=== PATIENT | female | born 2000 | race Caucasian/White ===

== ENCOUNTER 2021-01-01 23:22 | Inpatient (IN) ==
[2021-01-02] MEDS ORDERED: levETIRAcetam 1,000 MG in 0.9 % SODIUM CHLORIDE 100 ML IV STA (00:11)
[2021-01-02] MEDS ORDERED: SODIUM CHLORIDE 0.9% 1000ML 1,000 ML IV ONE (00:11)
[2021-01-02] MEDS ORDERED: ACETAMINOPHEN 1,000 MG/100 ML VIAL IV STA (00:16)
[2021-01-02] MEDS ORDERED: LORazepam 2 MG/4 ML VIAL ONE (00:36)
[2021-01-02 01:14] LABS: Eosinophils # (auto) 0.01 K/uL (0-0.5); Eosinophils % (auto) 0.2 %; Hematocrit (blood only) 34.4 % (37-47); Hemoglobin 11.8 g/dL (12.0-16.0); Immature Granulocytes # (auto) 0.02 K/uL (0.00-0.02); Immature Granulocytes % (auto) 0.4 %; Lymphocytes # (auto) 1.11 K/uL (1.2-3.4); Lymphocytes % (auto) 19.9 %; Mean Corpuscular Hemoglobin 30.8 pg (25-34); Mean Corpuscular Hgb Conc 34.3 g/dL (32-36); Mean Corpuscular Volume 89.8 fL (80-100); Monocytes # (auto) 0.36 K/uL (0.11-0.59); Monocytes % (auto) 6.5 %; Neutrophils # (auto) 4.07 K/uL (1.4-6.5); Platelet Count 211 K/uL (130-400); RDW Coefficient of Variation 12.5 % (11.5-14.5); RDW Standard Deviation 40.8 fL (36.4-46.3); Red Blood Count 3.83 M/uL (4.2-5.4); White Blood Count 5.57 K/uL (4.8-10.8)
[2021-01-02 01:32] LABS: Albumin Level 3.5 gm/dl (3.4-5.0); BUN Creatinine Ratio 7.4 (10-20); Calcium 8.3 mg/dl (8.5-10.1); Creatinine Clr Calc Pharmacy 94.7 ml/min; Est GFR (African American) 108.9 ml/min; Est GFR (Non-African American) 93.9 ml/min; Magnesium 2.2 mg/dl (1.8-2.4); Potassium 4.1 mmol/L (3.5-5.1)
[2021-01-02 01:34] LABS: Albumin Globulin Ratio 0.9 (0.9-2); Bilirubin,Total 0.2 mg/dl (0.2-1); Globulin 3.7 gm/dl (2.5-4.0); Total Protein 7.2 gm/dl (6.4-8.2)
--- NOTE | 2021-01-02 01:46 | History & Physical Report ---
Date of Service January 02, 2021 Assessment & Plan (1) Witnessed seizure-like activity: Plan: Witnessed seizure-like activity/known seizure disorder- Patient presently postictal Admit with seizure precautions NPO Resume: 200 mg p.o. daily if able to take p.o. in the morning Patient was given levetiracetam 1500 mg IV x1 in ED. Resume levetiracetam 1500 mg p.o. twice daily in the a.m. as long as able to take p.o., otherwise will change to IV NSS + KCl 20 mEq at 100 mils per hour Consult neurology (2) Seizure disorder: Plan: See above History of Present Illness Chief Complaint: The patient is brought to the emergency department after her third seizure of the day today Primary Care Provider: NO PCP The patient is a 20-year-old female with a past medical history significant for seizures, who is brought to the emergency department for assessment after having her third seizure of the day, and did have additional seizure while in the ED this evening. She is on lamotrigine and Keppra in the outpatient setting. She was given Keppra 1500 mg IV by the ED physician this evening. She is presently postictal, and not able to contribute to her HPI or review of systems Allergies Allergy/AdvReac Type Severity Reaction Status Date / Time Unable to Assess Allergy Unverified 01/02/21 01:39 Home Medications Medication Instructions Recorded Confirmed Type lamotrigine 100 mg tablet 100 mg PO UD 01/02/21 01/02/21 History (Lamictal) levetiracetam 100 mg/mL oral 1,500 mg PO BID 01/02/21 01/02/21 History solution (Keppra) Past Med/Surg History Medical History (Updated 01/02/21 @ 05:22 by Kip Doherty MD) Seizure disorder Social History Smoking Status: Never smoker Preferred Language: [place] Feels Safe at Home: Yes Review of Systems Review of Systems: Unable to contribute to review of systems due to postictal state Physical Exam Physical Exam: The patient is post ictal, well developed and well nourished, normocephalic and atraumatic, lying in bed and in no acute distress. HEENT--PERRL, EOMI, mucous membranes and oropharynx dry. Neck--supple. No JVD. No bruits. Thyroid normal, trachea midline, no adenopa thy. Heart--normal S1 and S2. No murmurs, rubs or gallops. Lungs--clear bilaterally, no respiratory distress, no accessory muscle use. Abdomen--normal bowel sounds and soft. Nontender. Nondistended, no hernias or masses, no organomegaly. Extremities--no cyanosis or clubbing. No edema. Dermatologic--normal skin turgor, normal color, no abnormal lymph nodes, no rash. Neurologic--cranial nerves II through XII grossly intact. Rheumatologic--limited exam Psychiatric--postictal. Results & Data Results & Data ([facility]) Vital Signs (Past 12 Hours) Vital Signs Temp Pulse Resp BP Pulse Ox 01/02/21 01:04 106 H 19 111/82 99 01/02/21 00:40 81 19 104/75 96 01/02/21 00:06 124/76 01/01/21 23:35 97.5 F L 96 H 18 111/71 95 Laboratory Results Laboratory Results WBC 5.57 K/uL (4.8-10.8) 01/02/21 01:05 RBC 3.83 M/uL (4.2-5.4) L 01/02/21 01:05 Hgb 11.8 g/dL (12.0-16.0) L 01/02/21 01:05 Hct 34.4 % (37-47) L 01/02/21 01:05 MCV 89.8 fL (80-100) 01/02/21 01:05 MCH 30.8 pg (25-34) 01/02/21 01:05 MCHC 34.3 g/dL (32-36) 01/02/21 01:05 RDW Std Deviation 40.8 fL (36.4-46.3) 01/02/21 01:05 RDW Coeff of [place] 12.5 % (11.5-14.5) 01/02/21 01:05 Plt Count 211 K/uL (130-400) 01/02/21 01:05 MPV 9.0 fL (7.4-10.4) 01/02/21 01:05 Immature Gran % (Auto) 0.4 % 01/02/21 01:05 Neut % (Auto) 73.0 % 01/02/21 01:05 Lymph % (Auto) 19.9 % 01/02/21 01:05 Carlton % (Auto) 6.5 % 01/02/21 01:05 Eos % (Auto) 0.2 % 01/02/21 01:05 Baso % (Auto) 0.0 % 01/02/21 01:05 Neut # (Auto) 4.07 K/uL (1.4-6.5) 01/02/21 01:05 Lymph # (Auto) 1.11 K/uL (1.2-3.4) L 01/02/21 01:05 Carlton # (Auto) 0.36 K/uL (0.11-0.59) 01/02/21 01:05 Eos # (Auto) 0.01 K/uL (0-0.5) 01/02/21 01:05 Baso # (Auto) 0.00 K/uL (0-0.2) 01/02/21 01:05 Immature Gran # (Auto) 0.02 K/uL (0.00-0.02) 01/02/21 01:05 Sodium 135 mmol/L (136-145) L 01/02/21 01:05 Potassium 4.1 mmol/L (3.5-5.1) 01/02/21 01:05 Chloride 109 mmol/L (98-107) H 01/02/21 01:05 Carbon Dioxide 21 mmol/L (21-32) 01/02/21 01:05 Anion Gap 5.0 (3-11) 01/02/21 01:05 BUN 7 mg/dl (7-18) 01/02/21 01:05 Creatinine 0.88 mg/dl (0.6-1.2) 01/02/21 01:05 Est Cr Clr Drug Dosing 94.7 ml/min 01/02/21 01:05 Est GFR ( Amer) 108.9 ml/min 01/02/21 01:05 Est GFR (Non-Af Amer) 93.9 ml/min 01/02/21 01:05 BUN/Creatinine Ratio 7.4 (10-20) L 01/02/21 01:05 Glucose 97 mg/dl (70-99) 01/02/21 01:05 Calcium 8.3 mg/dl (8.5-10.1) L 01/02/21 01:05 Magnesium 2.2 mg/dl (1.8-2.4) 01/02/21 01:05 Total Bilirubin 0.2 mg/dl (0.2-1) 01/02/21 01:05 AST 16 U/L (15-37) 01/02/21 01:05 ALT 17 U/L (12-78) 01/02/21 01:05 Alkaline Phosphatase 44 U/L (45-117) L 01/02/21 01:05 Total Protein 7.2 gm/dl (6.4-8.2) 01/02/21 01:05 Albumin 3.5 gm/dl (3.4-5.0) 01/02/21 01:05 Globulin 3.7 gm/dl (2.5-4.0) 01/02/21 01:05 Albumin/Globulin Ratio 0.9 (0.9-2) 01/02/21 01:05 COVID-19 Eval Order Covid19 at [facility] 01/02/21 01:07 SARS-CoV-2 (PCR) NEGATIVE (Negative) 01/02/21 01:07 Diagnostic Findings [facility] Patient: ARNOLD LOU (Female) : 89 Status: ER Date: 01/02/21 01:01 Room #: History: Pt. is post 2 seizures. Slices: 66 Priors: Tech: Pauline Fields @ [phone] Exams: CT HEAD Contrast: Accession Numbers: [id number] Referring Physician: CAROLINA RENNER Preliminary Findings Only See Final Report For Complete Findings CT HEAD: No ICH, mass effect or edema. No evidence of acute cortical stroke. Visualized sinuses and mastoid air cells are clear. Radiologist: Chandler Haywood MD Study ready at 01:02 and initial results transmitted at 01:15 *This report constitutes a preliminary interpretation only. Non-acute findings felt to be unrelated to the clinical presentation may not be discussed in this report. The study will be interpreted and a final report will be generated by the local Radiologist the following shift. To reach the hospital radiology department call [phone]. If a discrepancy is found between the preliminary and final interpretations of this study, please notify us via our Client Portal at [email or web address] QA [email or web address].You can also fax this report with a description of the discrepancy, or include the final report, to our daytime fax number [phone].If faxing, please indicate the severity of discrepancy using one of the following categories: [ ] 1 - Agree/Informational [ ] 2 - Unlikely to Affect Management [ ] 3 - Possible Eventual Change of Management [ ] 4 - Probable Immediate Change of Management For all other patient related information, please fax us at [phone]. [id number] Code Status & VTE Plan Code Status Full code VTE Prophylaxis Plan VTE Prophylaxis will be ordered: Yes PG Care Time/CCT Total # of Minutes Spent Total Time Spent with Patient: Total time spent is greater than 50% in coordination of care (as documented) at patient's floor/unit and/or counseling patient: Coding Level of Care Code 39405 Initial Inpt Care Lvl 2 Diagnoses Witnessed seizure-like activity R56.9 Seizure disorder G40.909
[2021-01-02] MEDS ORDERED: ONDANSETRON INJ 2 MG/ML 2 ML VIAL IV PRN (05:32)
[2021-01-02] MEDS ORDERED: LORazepam 1 MG/2 ML VIAL IV PRN (05:32)
[2021-01-02] MEDS: NSS + 20MEQ KCL 20 MEQ/1,000 ML BAG IV SCH ×2 (05:57→16:07)
--- NOTE | 2021-01-02 07:13 | CT Scan Report ---
HEAD CT NONCONTRAST CT DOSE: 729.78 mGycm HISTORY: Seizure x2 TECHNIQUE: Multiaxial CT images of the head were performed without the use of intravenous contrast. A utomated exposure control was utilized for this study. A dose lowering technique was utilized adheri ng to the principles of ALARA. Comparison: None. Findings: Mild mucosal thickening within the paranasal sinuses. The mastoid air cells are clear. The calvarium and skull base are intact. The ventricles and sulci are within normal limits. There is no m ass, hematoma, midline shift, or acute infarct. Impression: No acute intracranial abnormality. ACT 112: Negative or not required by law. Electronically signed by: Tom Irving M.D. 01/02/2021 7:12 AM
[2021-01-02] MEDS ORDERED: levETIRAcetam ORAL SOLN 100MG/ML PO SCH (09:00)
[2021-01-02] MEDS ORDERED: lamoTRIgine 100 MG TAB PO SCH ×5 (09:00→21:00)
--- NOTE | 2021-01-02 09:49 | Medical Student Progress Note ---
Date of Service January 02, 2021 Assessment & Plan (1) Seizure disorder: Plan: Seizure Disorder: - follow up with neurology for consideration of increasing dosage of medications Seizure-like activity: - treat underlying cough/congestion, as may URI/viral illness may be lowering her seizure threshold -continue Lamictal and Keppra -continue IV normal saline with 20 Meq KCl @ 100 mLs/hr - Zofran and Ativan PRN for nausea and additional seizure-like activity (2) Witnessed seizure-like activity: Admission and Anticipated Discharge Date Admission Date: January 02, 2021 Subjective 20 yo woman with PMHx of seizure disorder on Lamotrigine 100 mg QD and Levetiracetam 1500 mg BID presented to the ED after 3 seizures in the span of several hours. Her first seizure was at 8:30, witnessed by her roommates. She is unsure if they called the hospital before driving her over to the ED. As they were leaving their building, she had another seizure. She is unsure if she had another seizure before arriving to the ED (in the car). Of note, she has had a cough and "sniffles" for a week now. She doesn't believe her roommates are sick, but she does attend classes and social activities. She feels that she is getting better. She doesn't recall any head trauma or falls. Though she did point out a scratch on her face on neck, and attributed this to her episodes yesterday. She doesn't feel that she is sleep-deprived. She is not experiencing more stress than baseline. She isn't using alcohol or illicit drugs. Her appetite has been low since yesterday evening. She had a slight headache and feels dehydrated this morning. She is very tired and has blurry vision this AM. Historically, she was diagnosed with her seizure disorder a year and a half ago. She shared that alcohol used to be a "trigger" and she stopped drinking around the time of her diagnosis. Her "triggers" now are still alcohol when she does drink, and sleep deprivation. She shared with me that she never remembers her seizures and that they are of the Grand Mal variety. She says that she used to have warning signs, but she doesn't get them anymore. Her last seizure prior to the one yesterday (01/01) was 2-3 months ago. Medical history only significant for seizure disorder diagnosed 1.5 years ago. No past surgical history. She relayed no significant family history. 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[employer], studying hospitality, wants to travel lives with roommates Review of Systems Review of Systems: All systems reviewed & are unremarkable except as noted in HPI & below Constitutional: + fatigue; no increased appetite Eyes: as per Subjective / HPI blurry vision bilaterally Ear, Nose, Mouth, Throat: as per Subjective / HPI Respiratory: as per Subjective / HPI and + cough (1 week history) Cardiovascular: as per Subjective / HPI Gastrointestinal: as per Subjective / HPI decreased appetite this AM Genitourinary: as per Subjective / HPI no issues using the bathroom (urination and bowel movements) Musculoskeletal: as per Subjective / HPI Integumentary: as per Subjective / HPI Neurologic: as per Subjective / HPI, + seizure-like activity and + headache(s) Psychiatric: as per Subjective / HPI Physical Exam Constitutional: WD/WN, vitals as above well developed, well nourished, + ill appearing, well groomed and cooperative Eyes: PERRL, conjunctivae normal, anicteric sclerae + nystagmus (mild nystagmus both vertically and horizontally ) ENMT: external ear and nose normal, oropharynx normal Neck: trachea midline, no thyromegaly Respiratory: normal respiratory effort, lungs clear to auscultation Cardiovascular: RRR, no murmur, no edema Gastrointestinal (Abdomen): normal bowel sounds, soft, nontender, no hepatosplenomegaly Musculoskeletal: Head/Neck/Chest: normocephalic, head atraumatic and neck supple Extremities: + abnormal strength (strength 4/5 throughout; possibly related to fatigue) Skin: no rashes, warm and dry Trauma: + abrasion (small on face and neck) and + contusion (small bruise right side upper cheek ) Neurologic: patellar DTR's 2+ bilat, sensation intact and PERRL, EOMI, accommodation nl, no face palsy, no dysarthria normal touch/pain/proprioception, CN's II-XI intact bilaterally, plantar reflexes intact bilaterally, moves all extremities and awake Motor/Sensory: + abnormal movement (generally slow movements, may be due to fatigue ) Psychiatric: A+Ox3, euthymic affect Affect: + flat affect (pt fatigued ) Lymphatic: no cervical or axillary lymphadenopathy Results & Data ([facility]) Vital Signs (Past 12 Hours) Vital Signs Temp Pulse Pulse Resp BP BP BP 01/02/21 09:18 71 01/02/21 07:35 36.8 C 75 18 108/73 01/02/21 05:10 36.5 C 76 16 103/63 01/02/21 04:00 68 124/88 01/02/21 03:30 66 106/71 01/02/21 02:30 128/80 01/02/21 02:00 109/78 01/02/21 01:30 108/66 01/02/21 01:04 106 H 19 111/82 01/02/21 00:40 81 19 104/75 01/02/21 00:06 124/76 01/01/21 23:35 36.4 C L 96 H 18 111/71 Pulse Ox 01/02/21 09:18 01/02/21 07:35 98 01/02/21 05:10 98 01/02/21 04:00 96 01/02/21 03:30 98 01/02/21 02:30 01/02/21 02:00 01/02/21 01:30 01/02/21 01:04 99 01/02/21 00:40 96 01/02/21 00:06 01/01/21 23:35 95
[2021-01-02 10:53] LABS: Appearance Urine Clear (Clear); Bilirubin Urine Negative (Negative); Blood Urine Negative (Negative); Color Urine Yellow; Glucose Urine UA Negative (Negative); Ketones Urine Negative (Negative); Leukocyte Esterase Urine Negative (Negative); Nitrite Urine Negative (Negative); Protein Urine Negative (Negative); Urobilinogen Urine Negative (Negative)
--- NOTE | 2021-01-02 11:16 | Neurology Consultation ---
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 She has had several recent breakthrough seizures that were not clearly triggered by external factors or medication noncompliance. In speaking with the patient, it sounds like her seizures are incompletely controlled in spite of taking both Lamictal and Keppra. 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 RYANNE is typically very responsive to Keppra. Other seizure types such as partial complex seizures with secondary generalization or other primary generalized epilepsy syndrome are not completely excluded. I have recommended an EEG and brain MRI with seizure protocol for further assessment. Would also recommend increasing her dosage of Lamictal to 200 mg twice daily. Patient should not be driving. Assuming patient remains stable she may be able to be discharged later today. 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 She had multiple seizures yesterday, the first event occurred while alone in her apartment. She had contacted some of her friends who brought her to the emergency department for further evaluation. The patient does have an established diagnosis of seizure disorder/epilepsy and follows with a neurologist back home affiliated with [facility]. She informs me that her first seizure occurred at age 18 and may have been triggered by alcohol consumption at that time. However, she has had several subsequent seizures that have apparently been difficult to control with anticonvulsants, ultimately requiring both lamotrigine and Keppra. In spite of being on these 2 anticonvulsants, however, the patient reports having intermittent seizures, perhaps one episode every few months. Most of her episodes tend to be brief and are characterized by sudden jerking of the limbs. She will occasionally have a generalized tonic-clonic seizure and has had associated tongue bite in the past. Denies experiencing any loss of consciousness. Patient informs me that the limb jerking tends to occur early in the morning and she has had associated dropping or flinging of objects in her hands during the spells. She denies experiencing any episodes triggered by flashing lights. Patient denies experiencing any aura or other premonitory symptoms prior to her spells. She does have some minor bruising around the right eye and some scraping along the anterior aspect of her neck related to one of her recent seizures. She is mildly lethargic this morning and does not recall details pertaining to her recent seizure episodes. The patient reports compliance with her anticonvulsants. She denies any recent illnesses. She denies any recent alcohol consumption. She is aware of her current anticonvulsant drug regimen and informs me that she takes Keppra 1500 mg twice daily and lamotrigine 150 mg in the morning, 200 mg in the evening. She was given a 1500 mg loading dose of Keppra while in the emergency department. She did have a CT of the head completed as well which was unremarkable. Again, patient indicates that she began experiencing seizures at age 18. She informs me that she has been evaluated by 2 different neurologist back home, her current neurologist is affiliated with [facility]. She informs me that she has had multiple EEG evaluations including 24-hour ambulatory EEG monitoring but does not think any specific abnormalities have been identified. She also recalls having normal brain MRI previously. She does not recall any other specifics regarding her diagnosis other than seizure disorder. Allergies Allergy/AdvReac Type Severity Reaction Status Date / Time Unable to Assess Allergy Unverified 01/02/21 01:39 Home Medications Medication Instructions Recorded Confirmed Type lamotrigine 100 mg tablet 100 mg PO UD 01/02/21 01/02/21 History (Lamictal) levetiracetam 100 mg/mL oral 1,500 mg PO BID 01/02/21 01/02/21 History solution (Keppra) Patient History Medical History Seizure disorder Social History Smoking Status: Never smoker Hx Alcohol Use: No Hx Substance Use: No Preferred Language: Armenian Communication Ability: Effective Woods Laborer Required: No Beliefs That Will Affect Care: None Current Living Situation: Other Current Living Situation Comment: [place] Feels Safe at Home: Yes Assistive Devices: None Review of Systems Constitutional: no fever and no chills Eyes: no blind spots and no diplopia Ear, Nose, Mouth, Throat: no ear pain and no hearing loss Respiratory: no cough and no dyspnea Cardiovascular: no chest pain and no palpitations Gastrointestinal: no constipation and no diarrhea/loose stools Genitourinary: no urinary urgency and no urinary incontinence Musculoskeletal: no muscle weakness and no muscle atrophy Integumentary: no rash and no lesions Neurologic: as per Subjective / HPI Psychiatric: no behavioral changes, no depression, no abnormal sleep pattern and no anxiety Hematologic / Lymphatic: no easy bruising and no lymphadenopathy Exam (Neuro) Constitutional: well developed and well nourished; no acute distress Eyes: normal visual ferreira by confrontation, PERRL, normal accommodation and EOM intact bilaterally; no fundoscopic abnormality, no nystagmus and no papilledema Cardiovascular: Vessels: normal carotid upstroke; no carotid bruit Neurologic: Oriented to:: Person, Place and Time Memory: Short Term Intact and Remote Intact Attention: Span Intact and Concentration Intact Language: Naming Objects and Repeating Phrases Speech Fluency: negative Dysarthria Speech Aphasia: negative Aphasia Fund of Knowledge: Current Events, Past History and Vocabulary Cranial Nerves: Normal II (Visual ferreira full to confrontation, visual acuity normal), III, IV, (Pupils equal round reactive to light and accommodation, eye movements normal), V (Facial sensation intact), VII (There is no facial droop or weakness), VIII (Hearing intact), IX, X (Palate elevates to midline), XI (Shoulder shrug intact) and XII (Tongue protrudes to midline) Motor Strength: Normal Lower Extremities and Normal Upper Extremities; negative Pronator Drift Motor Tone: Normal Lower Extremities and Normal Upper Extremities Muscle Bulk/Involuntary Movements: No Involuntary Movements; negative Muscle Atrophy Sensation: Light Touch Intact, Pain/Temperature Intact, Vibration Intact and Proprioception Intact Coordination: Normal; negative Limited Balance, Dysdiadochokinesia, Finger-Nose Abnormal or Heel-Briggs Abnormal Deep Tendon Reflexes: Rt Triceps: 2+, Lt Triceps: 2+, Rt Biceps: 2+, Lt Biceps: 2+, Rt Brachioradialis: 2+, Lt Brachioradialis: 2+, Rt Patellar: 2+, Lt Patellar: 2+, Rt Ankle: 2+ and Lt Ankle: 2+ Special Tests: negative Babinski Present Gait: Normal Station and Gait Results & Data ([facility]) Vital Signs (Past 12 Hours) Vital Signs Temp Pulse Pulse Resp BP BP BP 01/02/21 10:54 36.8 C 81 17 106/69 01/02/21 09:18 71 01/02/21 07:35 36.8 C 75 18 108/73 01/02/21 05:10 36.5 C 76 16 103/63 01/02/21 04:00 68 124/88 01/02/21 03:30 66 106/71 01/02/21 02:30 128/80 01/02/21 02:00 109/78 01/02/21 01:30 108/66 01/02/21 01:04 106 H 19 111/82 01/02/21 00:40 81 19 104/75 01/02/21 00:06 124/76 01/01/21 23:35 36.4 C L 96 H 18 111/71 Pulse Ox 01/02/21 10:54 98 01/02/21 09:18 01/02/21 07:35 98 01/02/21 05:10 98 01/02/21 04:00 96 01/02/21 03:30 98 01/02/21 02:30 01/02/21 02:00 01/02/21 01:30 01/02/21 01:04 99 01/02/21 00:40 96 01/02/21 00:06 01/01/21 23:35 95 Coding Level of Care Code 87400 Inpt Consult Level 5 Diagnoses Seizure disorder G40.909
--- NOTE | 2021-01-02 14:55 | Electroencephalogram ---
EEG Procedure Note Date of Service January 02, 2021 Start / End Times Start Time: 11:46 AM End Time: 12:06 PM Referring Physician Peewee Holden MD History History of seizure disorder, recent breakthrough seizures. Home Medication List Medication Instructions Recorded Confirmed Type lamotrigine 100 mg tablet 100 mg PO UD 01/02/21 01/02/21 History (Lamictal) levetiracetam 100 mg/mL oral 1,500 mg PO BID 01/02/21 01/02/21 History solution (Keppra) Inpatient Medication List Potassium Chloride/Sodium Chloride (Normal Saline W/20 Meq Kcl) 20 meq in 1,000 mls @ 100 mls/hr IV .Q10H ALESHIA Stop: 02/01/21 05:59 Last Admin: 01/02/21 05:57 Dose: 100 mls/hr Documented by: [id number] Levetiracetam (Levetiracetam Oral Soln 100mg/Ml) 1,500 mg PO BID ALESHIA Stop: 02/01/21 08:59 Last Admin: 01/02/21 09:24 Dose: 1,500 mg Documented by: [id number] Discontinued Medications Sodium Chloride (Nss 1000ml) 1,000 mls @ 999 mls/hr IV .Q1H1M ONE Stop: 01/02/21 01:11 Last Infusion: 01/02/21 01:40 Dose: 0 mls/hr Documented by: [id number] Admin: 01/02/21 00:39 Dose: 999 mls/hr Documented by: [id number] Levetiracetam 1,000 mg/ Sodium (Chloride) 110 mls @ 440 mls/hr IV NOW STA Stop: 01/02/21 00:25 Last Infusion: 01/02/21 00:54 Dose: 0 mls/hr Documented by: [id number] Admin: 01/02/21 00:39 Dose: 440 mls/hr Documented by: [id number] Acetaminophen (Ofirmev) 1,000 mg in 100 mls @ 400 mls/hr IV NOW STA Stop: 01/02/21 00:30 Last Admin: 01/02/21 05:33 Dose: Not Given Documented by: [id number] Lamotrigine (Lamotrigine 100 Mg Tab) 150 mg PO QAM ALESHIA Stop: 02/01/21 08:59 Last Admin: 01/02/21 09:24 Dose: 150 mg Documented by: [id number] Lorazepam (Lorazepam 2 Mg/4 Ml Vial) Confirm Administered Dose 2 mg .ROUTE .[email or web address] ONE Stop: 01/02/21 00:37 Last Admin: 01/02/21 00:38 Dose: 2 mg Documented by: [id number] Description This is a 21 electrode EEG with a single channel dedicated to limited EKG. The electrodes were placed in accordance with the International 10-20 system. There is a posterior dominant rhythm of 12 Hz which is symmetrically distributed and attenuates with eye opening. There is a normal anterior to posterior organization. Photic stimulation is unremarkable. Hyperventilation is not performed. There is a symmetric frontal beta rhythm. There is some attenuation of the posterior dominant rhythm in the latter part of the study with the emergence of admixed generalized polymorphic theta activity. There are a few vertex waves. There is no focal or lateralized slowing. There are no spike wave abnormalities. There are no epileptiform abnormalities. Interpretation Normal-appearing awake/sleepy EEG. A normal EEG does not completely exclude a diagnosis of epilepsy. Further clinical correlation may be needed. [facility] [place] EEG Procedure Codes Indication for Procedure (1) Seizure disorder: Neurology Neurology: [id number] EEG include record awake & sleepy
--- NOTE | 2021-01-02 15:27 | Discharge Summary ---
Date of Service January 02, 2021 Admission HPI Per Admitting Provider The patient is a 20-year-old female with a past medical history significant for seizures, who is brought to the emergency department for assessment after having her third seizure of the day, and did have additional seizure while in the ED this evening. She is on lamotrigine and Keppra in the outpatient setting. She was given Keppra 1500 mg IV by the ED physician this evening. She is presently postictal, and not able to contribute to her HPI or review of systems Admission Exam Per Admitting Provider The patient is post ictal, well developed and well nourished, normocephalic and atraumatic, lying in bed and in no acute distress. HEENT--PERRL, EOMI, mucous membranes and oropharynx dry. Neck--supple. No JVD. No bruits. Thyroid normal, trachea midline, no adenopathy. Heart--normal S1 and S2. No murmurs, rubs or gallops. Lungs--clear bilaterally, no respiratory distress, no accessory muscle use. Abdomen--normal bowel sounds and soft. Nontender. Nondistended, no hernias or masses, no organomegaly. Extremities--no cyanosis or clubbing. No edema. Dermatologic--normal skin turgor, normal color, no abnormal lymph nodes, no rash . Neurologic--cranial nerves II through XII grossly intact. Rheumatologic--limited exam Psychiatric--postictal. Principal Diagnosis Breakthrough seizure Discharge Exam General: Well appearing, age appropriate, slight lethargy Heart: RRR, +S1 S2, no murmurs/gallops/rubs Lungs: cta b/l, no wheezes/rales/rhonchi Abd: soft, NT/ND, +BS Extremities: no swelling, no rashes Neuro: C2-12 intact b/l Discharge Data Allergies Allergy/AdvReac Type Severity Reaction Status Date / Time Unable to Assess Allergy Unverified 01/02/21 01:39 Consultations 01/02/21 01:42 ED Decision to Admit Stat 01/02/21 05:32 Consult Neurology Routine Ordered Studies 01/02/21 00:17 CT head/brain wo con Urgent 01/02/21 11:16 MR brain seizure wo/w con Routine Hospital Course (1) Seizure disorder: 20yo Female here for witnessed seizure activity, PMH seizure disorder on Keppra Lamictal. ()Seizure disorder Witnessed 2 seizure-like activity, patient brought to ED in post-ictal state had additional episode in ED. Given levetiracetam 1500 mg IV x1 in ED and IVF. Placed on home medication regime. Neurology consulted, belive seizures not controlled on current medication regime, recommend brain MRI EEG increased lamictal to 200mg BID, states patient should not be driving. EEG and brain MRI negative. Please have patient follow her PCP and Neurologist in outpatient setting. Total Time Total Time Spent Total Time Spent (In Minutes): <30 Discharge Plan Discharge Items Patient Disposition: Home - Self-Care Reason For Visit: SEIZURE ACTIVITY, SEIZURE DISORDER Discharge Diagnosis: Breakthrough Seizure Activity: Resume your previous activity Non-emergency contact: Primary Care Provider Call non-emergency contact if: you have any medication questions, your symptoms worsen and you have a fever Follow-up/Referrals: PCP,NO [Primary Care Provider] - Diet: Regular Addtl Attending Provider Instructions: You were admitted to the hospital for seizure. You were treated with Keppra and Ativan. Based on your brain imaging, there is no new structural abnormality causing your breakthrough seizure. We have increased your Lamictal to 200 mg twice a day and kept your Keppra at its current dose. Please make a follow up appointment with your Neurologist and Family Doctor after your hospitalization. As your seizures are not controlled at this time, please do not drive until you are approved by your neurologist in outpatient. A discharge summary will be sent to your primary care physician to ensure continuity of care. Please bring this discharge summary with you to your next office appointment so that your provider can review it at that time. Follow-up appointments: Make a follow-up appointment with your PCP within the next week. It is very important that you follow up with them shortly after discharge from the hospital. Please make a follow-up appointment with your Neurologist within the next week Keep all your follow-up appointments as already scheduled. If you cannot make an appointment, notify your provider. Medications: Your medication list has been reviewed and reconciled upon discharge to ensure accuracy and continuity of care. An updated list of all your medications is included with your hospital discharge paperwork. Please review this list closely, and make note of any changes. * We have increased your Lamictal to 200mg twice a day. Take your medications as instructed; do not skip a dose of your medicines. Make sure all of your doctors know every medicine you are taking (including pyps-wpv-oavwegm medicines, vitamins, and supplements). Call your primary care provider before taking any new medicines (including xuhd-ekk-lrttlkp medicines, vitamins, and supplements), because some of these may interact with your current medications, or may make your symptoms worse. Tell your primary care provider if you cannot afford your medications. CONTACT YOUR PRIMARY CARE PROVIDER if you experience any of the following: loss of consciousness, seizures Difficulty following your treatment plan, or difficulty taking medications CALL 911 OR GO TO THE EMERGENCY DEPARTMENT if you experience any of the following: Sudden, severe abdominal pain or nausea/vomiting Severe chest pain, or chest pain that radiates (moves) to your jaw or arm Sudden, severe shortness of breath or difficulty breathing Thank you for allowing us to participate in your care. Pending Studies at Discharge: No Stand-Alone Forms: My [facility] [address], Smoking Cessation Medications and DC Order Prescriptions: New lamotrigine [Lamictal] 200 mg tablet 200 mg PO BID 30 Days Qty: 60 RF: 0 levetiracetam [Keppra] 1,000 mg tablet 1,500 mg PO BID 30 Days Qty: 90 RF: 0 Discontinued lamotrigine [Lamictal] 100 mg Tablet 100 mg PO UD RF: 0 levetiracetam [Keppra] 100 mg/mL Solution 1,500 mg PO BID RF: 0 Discharge Orders: Discharge Order (Routine); Ordered 01/02/21 Ordered By: Emmy Pete/Other Patient Handouts: Epilepsy: How Seizures Affect the Body, Epilepsy: Safety During a Seizure, First Aid: Seizures Admission Data Admit Date/Time: 01/02/21 01:46 Attending Provider: Zaki Galaviz Admit Provider: Kip Doherty Primary Care Provider: PCP,NO Other Providers: Kip Doherty ; Peewee Holden Other Interventions: Discharge Summary Assessment (RN) Last Done: 01/02/21 18:09 Supervising Physician Co-Signing Physician Notes I personally examined the patient and verified all christian points of history and exam, discussed case, and agree with decision making with Dr Santo. Feeling better, feeling up to going home. No further seizure activity. Vitals noted, in general she is awake and alert pleasant no distress. HEENT normocephalic atraumatic mucous membranes moist. Breathing unlabored no accessory muscle use good effort. Skin shows no rashes no pallor or icterus. Neuro without focal deficits. Breakthrough seizuresMRI negative, okay for home from neuro perspectivewe will follow neuro recommendations on medications. Outpatient follow-up. Otherwise as above. Resident Activity Tracking Resident Involvement: Resident Care Provided Care Provided: Adult Hospital Medicine
[2021-01-02] MEDS ORDERED: GADOBUTROL 65ML VIAL IV ONE (16:54)
--- NOTE | 2021-01-02 16:57 | Magnetic Resonance Report ---
MR brain seizure wo/w con INDICATION: Seizure TECHNIQUE: Multiplanar and multisequence MR images of the brain were obtained prior to and following administration of gadolinium contrast. Comparison: Comparison is made to CT head 01/02/2021 FINDINGS: No abnormal restricted diffusion is identified. The white matter is unremarkable. There is no evidenc e of acute intraparenchymal hemorrhage. No extra axial fluid collections are seen. There are no nick s, mass effect, or midline shift. No abnormal enhancement is seen. The ventricular system is normal i n appearance. The corpus callosum, pituitary gland, and cerebellar tonsils appear grossly unremarkabl e.High-resolution images of the temporal lobes do not demonstrate any signal abnormality. Flow voids of the major intracranial arterial vessels are identified. Soft tissue thickening is noted in the bilateral maxillary maxillary, ethmoid, and frontal sinuses. Mastoid air cells are clear. IMPRESSION: 1. No acute abnormality. In particular, no edema in the temporal lobes bilaterally in this postictal patient. 2. Sinus disease. ACT 112: Negative or not required by law. Electronically signed by: Luiz Osborn M.D. 01/02/2021 4:26 PM
--- NOTE | 2021-01-02 20:16 | Billing Data ---
Date of Service January 02, 2021 Coding Level of Care Code D/C DAY MANAGEMENT <30 MINS
--- NOTE | 2021-01-03 06:08 | Electrocardiogram Report ---
Test Reason : Blood Pressure : / mmHG Vent. Rate : 068 BPM Atrial Rate : 068 BPM P-R Int : 188 ms QRS Dur : 076 ms QT Int : 416 ms P-R-T Axes : 057 084 058 degrees QTc Int : 442 ms Normal sinus rhythm Normal ECG No previous ECGs available Confirmed by Sal Verde ([id number]) on 01/03/2021 6:07:42 AM Referred By: REFERRED SELF Confirmed By:Sal Verde
[2021-01-03] MEDS ORDERED: lamoTRIgine 100 MG TAB PO SCH (09:00)
--- NOTE | 2021-01-04 07:59 | Emergency Department Note ---
Impression & Plan Epileptic seizure ED Provider Note CHIEF COMPLAINT: Seizure x2 HISTORY OF PRESENT ILLNESS: This 20-year-old female patient presents to the emergency department by private vehicle with complaints of seizure x2 today. The patient has a known seizure disorder and currently takes Keppra as well as Lamictal. The patient experienced a seizure this evening is apparently generalized in nature, witnessed by her roommate. She then took her evening dose of Keppra. She had no vomiting or injury at that time. Within an hour the patient experienced a second seizure walking down the [place], on her way to the hospital, again witnessed by roommates. They stated that her fall was broken however she did convulse well on her abdomen. She scraped her right facial cheek with her fingernail. They do not think she sustained a significant head injury but may have hit her head off of the ground while seizing. Patient is currently complaining of a headache. She does not believe that she is missed any doses of her medication. She states she just started having seizures within the last 2 years for unknown reasons. She denies any known triggers. She states she stopped drinking alcohol when she started having seizures. She denies any significant sleeplessness or excessive caffeine. She denies any substance abuse details of . REVIEW OF SYSTEMS: A review of systems was performed with positives and pertinent negatives listed in the history of present illness. 10 systems were reviewed and are otherwise negative. ALLERGIES: See Below MEDICATIONS: See Below PMH: See below SOCIAL HISTORY: See below PHYSICAL EXAM: Vital signs reviewed. General: Generally well-appearing 20-year-old female, in no significant distress. HEENT: No conjunctival injection, pupils are dilated at approximately 4 to 5 mm equal bilaterally. PERRLA, neck supple. Right facial cheek with 2 cm super ficial abrasion and minimal erythema. Cardiovascular: Regular rate and rhythm, no extra sounds. Pulmonary: Clear to auscultation bilaterally, normal work of breathing. Abdomen: Soft, nontender, nondistended, positive bowel sounds. Musculoskeletal: Atraumatic, no peripheral edema. Neurologic: Patient awake alert and oriented x3, speech is clear. Follows commands but seemingly slow to respond. Skin: Warm, dry, no rash EMERGENCY DEPARTMENT COURSE: This patient was evaluated and appeared to be in no significant distress. IV access was obtained and laboratory work was drawn. Patient was placed on a nuclear monitoring technician with seizure precautions maintained. IV fluids were initiated however as the IV saline lock was being established the patient did experience a third seizure for the day. Nursing staff came to get me and the seizure was mostly resolved by the time I got to the room. Patient r emained stable and was given 2 mg of IV Ativan. Patient was placed on nasal cannula oxygen with airway precautions maintained. She was given 1 g of IV Keppra. MONITORING: An order for cardiac monitoring was placed and the patient is noted to be in a normal sinus rhythm at 68 beats per minute. RADIOLOGY: See below, but no evidence of acute intracranial abnormality. EKG: Normal sinus rhythm at [address] segments, normal axis, no PVC, no PAC. DIAGNOSIS: Seizure episode with seizure disorder Disposition: Consultation with hospitalist, admission Past Med/Surg History Medical History Seizure disorder Social History Smoking Status: Never smoker Hx Alcohol Use: No Hx Substance Use: No Preferred Language: Mongolian Communication Ability: Effective Registered Occupational Therapist Required: No Beliefs That Will Affect Care: None Current Living Situation: Other Current Living Situation Comment: Roomates Feels Safe at Home: Yes Assistive Devices: None Allergies Allergies Allergy/AdvReac Type Severity Reaction Status Date / Time Unable to Assess Allergy Unverified 01/02/21 01:39 Home Meds Previous Rx's Medication Instructions Recorded lamotrigine 200 mg tablet 200 mg PO BID 30 Days #60 tab 01/02/21 (Lamictal) levetiracetam 1,000 mg tablet 1,500 mg PO BID 30 Days #90 tab 01/02/21 (Keppra) Results & Data (ED) Home Medications Current Medication List: was personally reviewed by me Laboratory Data Attestation: I reviewed the patient's lab results. Result diagrams: 01/02/21 01:05 01/02/21 01:05 Lab Results 01/02/21 01/02/21 01/02/21 Range/Units 00:08 01:05 01:05 WBC 5.57 (4.8-10.8) K/uL RBC 3.83 L (4.2-5.4) M/uL Hgb 11.8 L (12.0-16.0) g/dL Hct 34.4 L (37-47) % MCV 89.8 (80-100) fL MCH 30.8 (25-34) pg MCHC 34.3 (32-36) g/dL RDW Std Deviation 40.8 (36.4-46.3) fL RDW Coeff of [place] 12.5 (11.5-14.5) % Plt Count 211 (130-400) K/uL MPV 9.0 (7.4-10.4) fL Immature Gran % (Auto) 0.4 % Neut % (Auto) 73.0 % Lymph % (Auto) 19.9 % [place] % (Auto) 6.5 % Eos % (Auto) 0.2 % Baso % (Auto) 0.0 % Neut # (Auto) 4.07 (1.4-6.5) K/uL Lymph # (Auto) 1.11 L (1.2-3.4) K/uL [place] # (Auto) 0.36 (0.11-0.59) K/uL Eos # (Auto) 0.01 (0-0.5) K/uL Baso # (Auto) 0.00 (0-0.2) K/uL Immature Gran # (Auto) 0.02 (0.00-0.02) K/uL Sodium 135 L (136-145) mmol/L Potassium 4.1 (3.5-5.1) mmol/L Chloride 109 H (98-107) mmol/L Carbon Dioxide 21 (21-32) mmol/L Anion Gap 5.0 (3-11) BUN 7 (7-18) mg/dl Creatinine 0.88 (0.6-1.2) mg/dl Est Cr Clr Drug Dosing 94.7 ml/min Est GFR ( Amer) 108.9 ml/min Est GFR (Non-Af Amer) 93.9 ml/min BUN/Creatinine Ratio 7.4 L (10-20) Glucose 97 (70-99) mg/dl Calcium 8.3 L (8.5-10.1) mg/dl Magnesium 2.2 (1.8-2.4) mg/dl Total Bilirubin 0.2 (0.2-1) mg/dl AST 16 (15-37) U/L ALT 17 (12-78) U/L Alkaline Phosphatase 44 L (45-117) U/L Total Protein 7.2 (6.4-8.2) gm/dl Albumin 3.5 (3.4-5.0) gm/dl Globulin 3.7 (2.5-4.0) gm/dl Albumin/Globulin Ratio 0.9 (0.9-2) POC Ur Test Cancelled COVID-19 Eval Order SARS-CoV-2 (PCR) (Negative) 01/02/21 01/02/21 Range/Units 01:07 01:07 WBC (4.8-10.8) K/uL RBC (4.2-5.4) M/uL Hgb (12.0-16.0) g/dL Hct (37-47) % MCV (80-100) fL MCH (25-34) pg MCHC (32-36) g/dL RDW Std Deviation (36.4-46.3) fL RDW Coeff of [place] (11.5-14.5) % Plt Count (130-400) K/uL MPV (7.4-10.4) fL Immature Gran % (Auto) % Neut % (Auto) % Lymph % (Auto) % [place] % (Auto) % Eos % (Auto) % Baso % (Auto) % Neut # (Auto) (1.4-6.5) K/uL Lymph # (Auto) (1.2-3.4) K/uL [place] # (Auto) (0.11-0.59) K/uL Eos # (Auto) (0-0.5) K/uL Baso # (Auto) (0-0.2) K/uL Immature Gran # (Auto) (0.00-0.02) K/uL Sodium (136-145) mmol/L Potassium (3.5-5.1) mmol/L Chloride (98-107) mmol/L Carbon Dioxide (21-32) mmol/L Anion Gap (3-11) BUN (7-18) mg/dl Creatinine (0.6-1.2) mg/dl Est Cr Clr Drug Dosing ml/min Est GFR ( Amer) ml/min Est GFR (Non-Af Amer) ml/min BUN/Creatinine Ratio (10-20) Glucose (70-99) mg/dl Calcium (8.5-10.1) mg/dl Magnesium (1.8-2.4) mg/dl Total Bilirubin (0.2-1) mg/dl AST (15-37) U/L ALT (12-78) U/L Alkaline Phosphatase (45-117) U/L Total Protein (6.4-8.2) gm/dl Albumin (3.4-5.0) gm/dl Globulin (2.5-4.0) gm/dl Albumin/Globulin Ratio (0.9-2) POC Ur Test COVID-19 Eval Order Covid19 at [facility] SARS-CoV-2 (PCR) NEGATIVE (Negative) Administered Medications Discontinued Medications Gadobutrol (Gadobutrol 65ml Vial) 6.5 ml IV ONCE ONE Stop: 01/02/21 16:55 Last Admin: 01/02/21 16:55 Dose: 6.5 ml Documented by: [id number] Sodium Chloride (Nss 1000ml) 1,000 mls @ 999 mls/hr IV .Q1H1M ONE Stop: 01/02/21 01:11 Last Infusion: 01/02/21 01:40 Dose: 0 mls/hr Documented by: [id number] Admin: 01/02/21 00:39 Dose: 999 mls/hr Documented by: [id number] Levetiracetam 1,000 mg/ Sodium (Chloride) 110 mls @ 440 mls/hr IV NOW STA Stop: 01/02/21 00:25 Last Infusion: 01/02/21 00:54 Dose: 0 mls/hr Documented by: [id number] Admin: 01/02/21 00:39 Dose: 440 mls/hr Documented by: [id number] Acetaminophen (Ofirmev) 1,000 mg in 100 mls @ 400 mls/hr IV NOW STA Stop: 01/02/21 00:30 Last Admin: 01/02/21 05:33 Dose: Not Given Documented by: [id number] Potassium Chloride/Sodium Chloride (Normal Saline W/20 Meq Kcl) 20 meq in 1,000 mls @ 100 mls/hr IV .Q10H ALESHIA Stop: 02/01/21 05:59 Last Admin: 01/02/21 16:07 Dose: Not Given Documented by: [id number] Infusion: 01/02/21 16:07 Dose: 0 mls/hr Documented by: [id number] Admin: 01/02/21 05:57 Dose: 100 mls/hr Documented by: [id number] Lamotrigine (Lamotrigine 100 Mg Tab) 150 mg PO QAM ALESHIA Stop: 02/01/21 08:59 Last Admin: 01/02/21 09:24 Dose: 150 mg Documented by: [id number] Levetiracetam (Levetiracetam Oral Soln 100mg/Ml) 1,500 mg PO BID ALESHIA Stop: 02/01/21 08:59 Last Admin: 01/02/21 09:24 Dose: 1,500 mg Documented by: [id number] Lorazepam (Lorazepam 2 Mg/4 Ml Vial) Confirm Administered Dose 2 mg .ROUTE .[facility]- [facility] ONE Stop: 01/02/21 00:37 Last Admin: 01/02/21 00:38 Dose: 2 mg Documented by: [id number] Imaging Data Radiologist's Impression: Head CT 01/02/21 00:[address] DOSE: 729.78 mGycm HISTORY: Seizure x2 TECHNIQUE: Multiaxial CT images of the head were performed without the use of intravenous contrast. Automated exposure control was utilized for this study. A dose lowering technique was utilized adhering to the principles of ALARA. Comparison: None. Findings: Mild mucosal thickening within the paranasal sinuses. The mastoid air cells are clear. The calvarium and skull base are intact. The ventricles and sulci are within normal limits. There is no mass, hematoma, midline shift, or acute infarct. Impression: No acute intracranial abnormality. ACT 112: Negative or not required by law. Electronically signed by: Tom Irving M.D. 01/02/2021 7:12 AM Discharge Plan Visit Data Chief Complaint: Seizure Stated Complaint: HISTORY OF SEIZURES, HAD TWO TONIGHT ED Provider: Patti Arthur Discharge Problem: Epileptic seizure Patient Disposition: Admitted As Inpatient Discharge Instructions Interventions: ED Discharge Assessment Last Done: 01/02/21 04:30 Discharge Problem: Epileptic seizure Qualifiers: Epilepsy type: unspecified Intractability: not intractable Status epilepticus: without status epilepticus Qualified Code(s): G40.909 - Epilepsy, unspecified, not intractable, without status epilepticus
== END 2021-01-02 19:32 | disposition home or self-care (01) | DRG 101 ==
LOC: ED 23:22 → SUATTDRO 01-02 01:46 → 2S 01-02 01:46

== ENCOUNTER 2021-01-10 19:32 | Observation (INO) ==
[2021-01-10 19:56] LABS: Hematocrit (blood only) 34.9 % (37-47); Hemoglobin 12.1 g/dL (12.0-16.0); Mean Corpuscular Hgb Conc 34.7 g/dL (32-36); Mean Corpuscular Volume 89.5 fL (80-100); RDW Coefficient of Variation 12.7 % (11.5-14.5); White Blood Count 9.69 K/uL (4.8-10.8)
[2021-01-10 19:57] LABS: Basophils # (auto) 0.02 K/uL (0-0.2); Basophils % (auto) 0.2 %; Eosinophils # (auto) 0.01 K/uL (0-0.5); Eosinophils % (auto) 0.1 %; Immature Granulocytes # (auto) 0.01 K/uL (0.00-0.02); Immature Granulocytes % (auto) 0.1 %; Lymphocytes # (auto) 1.36 K/uL (1.2-3.4); Mean Platelet Volume 9.2 fL (7.4-10.4); Monocytes # (auto) 0.52 K/uL (0.11-0.59); Monocytes % (auto) 5.4 %; Neutrophils # (auto) 7.77 K/uL (1.4-6.5); Neutrophils % (auto) 80.2 %; Platelet Count 269 K/uL (130-400)
[2021-01-10 20:18] LABS: Albumin Level 3.8 gm/dl (3.4-5.0); BUN Creatinine Ratio 5.7 (10-20); Calcium 9.1 mg/dl (8.5-10.1); Creatinine Clr Calc Pharmacy 90.4 ml/min; Est GFR (African American) 113.5 ml/min; Est GFR (Non-African American) 97.9 ml/min
[2021-01-10 20:21] LABS: Albumin Globulin Ratio 1.1 (0.9-2); Bilirubin,Total 0.6 mg/dl (0.2-1); Globulin 3.6 gm/dl (2.5-4.0); Total Protein 7.4 gm/dl (6.4-8.2)
[2021-01-10] MEDS ORDERED: LORazepam 2 MG/ML VIAL (IM USE) ONE (20:26)
--- NOTE | 2021-01-10 21:01 | CT Scan Report ---
CT OF THE HEAD WITHOUT CONTRAST CLINICAL HISTORY: seizure, [facility] COMPARISON STUDY: Head CT and MRI of the brain January 02, 2021. CT DOSE: 780.27 mGy.cm TECHNIQUE: Helical axial images of the head were obtained without IV contrast. Automated exposure con trol was utilized for the study. A dose lowering technique was utilized adhering to the principles o f ALARA. FINDINGS: No acute intracranial hemorrhage, midline shift or mass effect is present. The ventricular system is unremarkable. The basal cisterns are patent. No extra-axial collections are present. There are no findings to suggest acute dural sinus thrombosis or acute territorial infarct. No calvarial fr acture is identified. Left frontal sinus is largely opacified and contains secretions. There is also left anterior ethmoid sinus mucosal thickening. These findings are better depicted on the facial bone CT which will be reported separately. This has increased since prior CT. IMPRESSION: 1. No acute intracranial findings. 2. No calvarial fracture. 3. Left frontal and ethmoid sinus opacification, as described above. This is better depicted on the f acial bone CT which will be reported separately. ACT 112: Negative or not required by law. Electronically signed by: Angelo Huang M.D. 01/10/2021 9:00 PM
[2021-01-10] MEDS ORDERED: lamoTRIgine 100 MG TAB PO STA ×2 (21:07→21:12)
[2021-01-10] MEDS ORDERED: levETIRAcetam 1,500 MG in 0.9 % SODIUM CHLORIDE 100 ML IV STA (21:10)
--- NOTE | 2021-01-10 21:11 | CT Scan Report ---
MAXILLOFACIAL CT WITHOUT CONTRAST CLINICAL HISTORY: seizure, left maxilla contusion COMPARISON STUDY: Head CT January 02, 2021. TECHNIQUE: A maxillofacial CT was performed without IV contrast. Coronal and sagittal reformats were viewed. Automated exposure control was utilized for the study. A dose lowering technique was utiliz ed adhering to the principles of ALARA. FINDINGS: Globes are intact with no retrobulbar hematoma. No acute facial fracture is present. Left f rontal sinus is largely opacified. Left anterior ethmoid sinuses are also opacified. There is mild po lypoid mucosal thickening of the maxillary sinuses. Paranasal sinus opacification has increased since prior CT and MRI. Alignment of the temporomandibular joints is anatomic. There is no skull base frac ture. No acute fracture within visualized portions of the upper cervical spine is present. The orbita l floors are intact. IMPRESSION: 1. No acute facial fracture. 2. Paranasal sinus opacification, as described above. This has increased since prior CT of January 02, 2021. ACT 112: Negative or not required by law. Electronically signed by: Angelo Huang M.D. 01/10/2021 9:10 PM
[2021-01-10] MEDS ORDERED: cefTRIAXone SODIUM 1,000 MG/50 ML BAG IV STA (21:47)
--- NOTE | 2021-01-10 22:17 | Emergency Department Note ---
Impression & Plan Epileptic seizure ED Provider Note INFORMANT: Patient and mother ED PROVIDER(S): Ricardo Garcia MD CHIEF COMPLAINT: Seizure PLAN: Disposition: Admitted Condition: Good Outpatient prescription management: none Referral: None MEDICAL DECISION MAKING: Patient presented because of a seizure. Mother notes that she has had 3 episodes this month. Record review indicates that she had 2 episodes on her last visit. She was admitted at that time and did well. The patient admits to taking her medications regularly. At the completion of her physical the patient then had a generalized seizure witnessed by me. She was in the bed. Suffered no injury from the event. She was given supplemental oxygen and a milligram of IV Ativan. The event lasted about 60 seconds in total and she was postictal for 5 to 10 minutes afterwards. She was able to answer questions. She was very sleepy from the Ativan. She underwent CT imaging of her head and facial bones. No fracture or intracranial bleeding was noted. She was noted to have some sinus congestion. I did discuss this with the patient's mother. She did note the patient was complaining of headache intermittently and it was positional. This could explain the sinus related issue seen on CT. The patient had no headache prior to her second seizure episode. She had no neck stiffness. The patient has no fever or white count elevation to suggest significant infection like meningitis or encephalitis. Her Keppra was given IV 1500 mg. Her Lamictal was ordered orally. I did discuss case with Dr. Holden of neurology. He asked for the patient to get an extra 50 mg of Lamictal. I did cover the patient's sinus with Rocephin. I did discuss the case with Dr. Pittman of the hospitalist service. She evaluated the patient in the ED and admitted her. Triage Nursing notes reviewed and agree them. Vital Signs: reviewed and remarkable for no significant abnormalities Differential diagnosis: Epilepsy, infection, hypoglycemia, electrolyte abnormalities, cardiac sources, intracerebral event, trauma, toxicologic, neurologic, syncope, as well as other pathologies. Diagnostics interpreted by me: EC Lead ECG performed and revealed Normal sinus rhythym at 78, normal Kirby, QRS normal. No elevation or depression. No PACs or PVCs Cardiac Monitoring: Cardiac monitoring ordered by me: The patient was placed on continuous cardiac monitoring and observed. It revealed a normal sinus rhythm at 87 beats per minute without ectopy or evidence of dysrhythmia. Imaging studies: CT imaging of the head and facial bones as noted above. No acute intracranial injury noted. No skull fracture or facial bone fracture. I refer you to the EMR for further details. HPI: The patient is a 20 year old female who presents to the Emergency Room with complaints of seizure. This started again this evening and is resolved. Patient states that she sometimes gets a prodrome prior to the seizure and that occurred this evening. She called her mother. She then remembers waking up on the ground. She struck the left side of her face. This is the third seizure that occurred in the last week. The patient states she is sleeping well and did take her Keppra and Lamictal as prescribed. She is on all 1500 mg of Keppra twice daily and 200 mg of Lamictal twice daily. She did note some blurry vision that occurs prior to the events. She also notes occasional headaches. She had 1 today as well but it is currently resolved. Patient took no medication for this event this evening. Current pain is rated as 3/10. Pt denies fevers, chills, diaphoresis, visual changes, neck pain, chest pain, breathing difficulties, nausea, vomiting, abdominal pain, back pain, melena, hematochezia, urinary symptoms, numbness, weakness, lymphadenopathy, rash, or other complaints. ROS: See above HPI for pertinent positives & negatives. A total of 10 systems reviewed and were otherwise negative. PAST MEDICAL HISTORY:See Below , seizure disorder PAST SURGICAL HISTORY:See Below, FAMILY HISTORY:See Below SOCIAL HISTORY:See Below, [facility] MEDICATIONS:See Below ALLERGIES:See Below VITALS:See Below PHYSICAL EXAMINATION: GENERAL: Awake, tired appearing, in no distress HENT: Normocephalic, there is a contusion and hematoma to the left maxillary region. Oropharynx unremarkable. EYES: Normal conjunctiva. Sclera non-icteric.PERRLA EOMI. NECK: Inspection normal. Non-tender. Supple. No nuchal rigidity. FROM. No masses. RESPIRATORY: Clear to auscultation. No wheezes. No rales. Normal respiratory effort. CARDIAC: Normal rate. Normal rhythm. No murmurs. No rubs. Extremities warm and well perfused. Pulses equal. No JVD. GI: Soft, non-distended. No tenderness to palpation. No rebound or guarding. No masses. RECTAL: Deferred. MUSCULOSKELETAL: Atraumatic. Chest examination reveals no tenderness. The back is symmetrical on inspection without obvious abnormality. There is no CVA tenderness to palpation. No joint edema. LOWER EXTREMITIES: Calves are equal size bilaterally and non-tender. No edema. No discoloration. NEURO: Normal sensorium. No sensory or motor deficits noted. No drift. Speech normal. SKIN: No rash or jaundice noted. CRITICAL CARE: I have personally spent greater than 30 minutes of critical care time in the direct management of this patient. This includes bedside care, interpretation of diagnostic studies, and testing, discussion with consultants, patient, and family members, and other required patient management activities. This 30 minutes is in excess of all separately billable procedures. Ricardo Garcia MD Past Med/Surg History Medical History Seizure disorder Social History Smoking Status: Never smoker Hx Alcohol Use: No Hx Substance Use: No Preferred Language: [place] Communication Ability: Effective Electric Motor Assembler Required: No Beliefs That Will Affect Care: None Current Living Situation: Other Current Living Situation Comment: Roomates Feels Safe at Home: Yes Assistive Devices: None Allergies Allergies Allergy/AdvReac Type Severity Reaction Status Date / Time No Known Allergies Allergy Verified 01/10/21 20:30 Home Meds Home Medications Medication Instructions Recorded Confirmed levetiracetam 100 mg/mL oral 1,500 mg PO BID 01/10/21 01/10/21 solution Previous Rx's Medication Instructions Recorded lamotrigine 200 mg tablet 200 mg PO BID 30 Days #60 tab 01/02/21 (Lamictal) Results & Data (ED) Vital Signs Vital Signs - 24 hr 01/10/21 19:34 01/10/21 20:03 01/10/21 20:04 Temperature 36.6 C Temperature Source Temporal Artery Scan Pulse Rate 66 78 Pulse Rate [Apical] 75 Pulse Rate from SpO2 Sensor 78 Respiratory Rate 16 12 20 Respiratory Effort / Characteristics Non-Labored Spontaneous Respiratory Depth Normal Respiratory Pattern Regular Blood Pressure 102/72 113/67 Blood Pressure [Right Arm] 113/67 Blood Pressure Mean 82 82 Blood Pressure Mean [Right Arm] 82 Blood Pressure Position Sitting Pulse Oximetry 100 98 96 Oxygen Delivery Method Room Air Room Air Sepsis Recent Fever Within 48 Hours No Sepsis New/Unexplained Change in Mental Status No Sepsis Action Taken by Nursing No Action Required 01/10/21 20:30 01/10/21 21:00 01/10/21 21:30 Temperature Temperature Source Pulse Rate 119 H 89 87 Pulse Rate [Apical] Pulse Rate from SpO2 Sensor 119 H 85 Respiratory Rate 15 14 15 Respiratory Effort / Characteristics Respiratory Depth Respiratory Pattern Blood Pressure 132/82 125/66 104/68 Blood Pressure [Right Arm] Blood Pressure Mean 98 85 80 Blood Pressure Mean [Right Arm] Blood Pressure Position Pulse Oximetry 100 97 96 Oxygen Delivery Method Sepsis Recent Fever Within 48 Hours Sepsis New/Unexplained Change in Mental Status Sepsis Action Taken by Nursing 01/10/21 22:00 Temperature Temperature Source Pulse Rate 87 Pulse Rate [Apical] Pulse Rate from SpO2 Sensor 87 Respiratory Rate 14 Respiratory Effort / Characteristics Respiratory Depth Respiratory Pattern Blood Pressure 86/53 L Blood Pressure [Right Arm] Blood Pressure Mean 64 Blood Pressure Mean [Right Arm] Blood Pressure Position Pulse Oximetry 93 Oxygen Delivery Method Sepsis Recent Fever Within 48 Hours Sepsis New/Unexplained Change in Mental Status Sepsis Action Taken by Nursing Laboratory Data Result diagrams: 01/10/21 19:40 01/10/21 19:40 Lab Results 01/10/21 01/10/21 01/10/21 Range/Units 19:40 19:40 21:25 WBC 9.69 (4.8-10.8) K/uL RBC 3.90 L (4.2-5.4) M/uL Hgb 12.1 (12.0-16.0) g/dL Hct 34.9 L (37-47) % MCV 89.5 (80-100) fL MCH 31.0 (25-34) pg MCHC 34.7 (32-36) g/dL RDW Std Deviation 41.0 (36.4-46.3) fL RDW Coeff of [place] 12.7 (11.5-14.5) % Plt Count 269 (130-400) K/uL MPV 9.2 (7.4-10.4) fL Immature Gran % (Auto) 0.1 % Neut % (Auto) 80.2 % Lymph % (Auto) 14.0 % [place] % (Auto) 5.4 % Eos % (Auto) 0.1 % Baso % (Auto) 0.2 % Neut # (Auto) 7.77 H (1.4-6.5) K/uL Lymph # (Auto) 1.36 (1.2-3.4) K/uL [place] # (Auto) 0.52 (0.11-0.59) K/uL Eos # (Auto) 0.01 (0-0.5) K/uL Baso # (Auto) 0.02 (0-0.2) K/uL Immature Gran # (Auto) 0.01 (0.00-0.02) K/uL Sodium 136 (136-145) mmol/L Potassium 4.0 (3.5-5.1) mmol/L Chloride 104 (98-107) mmol/L Carbon Dioxide 28 (21-32) mmol/L Anion Gap 4.0 (3-11) BUN 5 L (7-18) mg/dl Creatinine 0.85 (0.6-1.2) mg/dl Est Cr Clr Drug Dosing 90.4 ml/min Est GFR ( Amer) 113.5 ml/min Est GFR (Non-Af Amer) 97.9 ml/min BUN/Creatinine Ratio 5.7 L (10-20) Glucose 138 H (70-99) mg/dl Calcium 9.1 (8.5-10.1) mg/dl Total Bilirubin 0.6 (0.2-1) mg/dl AST 12 L (15-37) U/L ALT 14 (12-78) U/L Alkaline Phosphatase 61 (45-117) U/L Total Protein 7.4 (6.4-8.2) gm/dl Albumin 3.8 (3.4-5.0) gm/dl Globulin 3.6 (2.5-4.0) gm/dl Albumin/Globulin Ratio 1.1 (0.9-2) COVID-19 Eval Order Covid19 at [facility] Administered Medications Discontinued Medications Levetiracetam 2,000 mg/ Sodium (Chloride) 270 mls @ 999 mls/hr IV NOW STA Stop: 01/10/21 21:23 Last Admin: 01/10/21 22:10 Dose: Not Given Documented by: [id number] Levetiracetam 1,500 mg/ Sodium (Chloride) 115 mls @ 440 mls/hr IV NOW STA Stop: 10/08/21 21:24 Last Infusion: 01/10/21 21:56 Dose: 0 mls/hr Documented by: [id number] Admin: 01/10/21 21:37 Dose: 440 mls/hr Documented by: [id number] Ceftriaxone Sodium (Rocephin) 1,000 mg in 50 mls @ 100 mls/hr IV NOW STA Stop: 01/10/21 22:16 Last Admin: 01/10/21 22:10 Dose: 100 mls/hr Documented by: [id number] Lorazepam (Lorazepam 2 Mg/Ml Vial (Im Use)) Confirm Administered Dose 2 mg .ROUTE .[employer] ONE Stop: 01/10/21 20:27 Last Admin: 01/10/21 20:31 Dose: 1 mg Documented by: [id number] Imaging Data Radiologist's Impression: Face CT 01/10/21 20:[address] WITHOUT CONTRAST CLINICAL HISTORY: seizure, left maxilla contusion COMPARISON STUDY: Head CT January 02, 2021. TECHNIQUE: A maxillofacial CT was performed without IV contrast. Coronal and sagittal reformats were viewed. Automated exposure control was utilized for the study. A dose lowering technique was utilized adhering to the principles of ALARA. FINDINGS: Globes are intact with no retrobulbar hematoma. No acute facial fr acture is present. Left frontal sinus is largely opacified. Left anterior ethmoid sinuses are also opacified. There is mild polypoid mucosal thickening of the maxillary sinuses. Paranasal sinus opacification has increased since prior CT and MRI. Alignment of the temporomandibular joints is anatomic. There is no skull base fracture. No acute fracture within visualized portions of the upper cervical spine is present. The orbital floors are intact. IMPRESSION: 1. No acute facial fracture. 2. Paranasal sinus opacification, as described above. This has increased since prior CT of January 02, 2021. ACT 112: Negative or not required by law. Electronically signed by: Angelo Huang M.D. 01/10/2021 9:[address] 01/10/21 20:34 CT OF THE HEAD WITHOUT CONTRAST CLINICAL HISTORY: seizure, [facility] COMPARISON STUDY: Head CT and MRI of the brain January 02, 2021. CT DOSE: 780.27 mGy.cm TECHNIQUE: Helical axial images of the head were obtained without IV contrast. Automated exposure control was utilized for the study. A dose lowering tech nique was utilized adhering to the principles of ALARA. FINDINGS: No acute intracranial hemorrhage, midline shift or mass effect is present. The ventricular system is unremarkable. The basal cisterns are patent. No extra-axial collections are present. There are no findings to suggest acute dural sinus thrombosis or acute territorial infarct. No calvarial fracture is identified. Left frontal sinus is largely opacified and contains secretions. There is also left anterior ethmoid sinus mucosal thickening. These findings are better depicted on the facial bone CT which will be reported separately. This has increased since prior CT. IMPRESSION: 1. No acute intracranial findings. 2. No calvarial fracture. 3. Left frontal and ethmoid sinus opacification, as described above. This is better depicted on the facial bone CT which will be reported separately. ACT 112: Negative or not required by law. Electronically signed by: Angelo Huang M.D. 01/10/2021 9:00 PM Discharge Plan Visit Data Chief Complaint: Seizure Stated Complaint: HAD SEIZURE ED Provider: Ricardo Garcia Discharge Problem: Epileptic seizure Forms Stand Alone Forms: My [facility] Prescriptions Prescriptions: No Action lamotrigine [Lamictal] 200 mg tablet 200 mg PO BID 30 Days Qty: 60 RF: 0 levetiracetam 100 mg/mL solution 1,500 mg PO BID RF: 0 Referrals Referrals: PCP,NO [Primary Care Provider] -
--- NOTE | 2021-01-10 22:22 | History & Physical Report ---
Date of Service January 10, 2021 Assessment & Plan (1) Seizure disorder: Plan: 20yo female with known seizure disorder on Lamictal and Keppra presenting with seizure x 3 today. Patient was seen in the ER on 01/04/21 for seizure as well. Workup is unremarkable. Uncertain of trigger. Patient is compliant with medication -Observation to medical -Maintain seizure precautions -Check Lamictal level -Increase Lamictal to 250mg po BID -Continue keppra 1500mg po BID -Neurology consultation appreciated Patient administered Ceftriaxone in the ER for possible sinusitis. Will hold additional antibiotics for now -Nasal saline F/E/N - Heplock, electrolytes WNL, Regular diet as tolerated Ppx - Low risk for DVT Code - Full Dispo - Observation to medical History of Present Illness Chief Complaint: seizure Primary Care Provider: NO PCP Jeannie Campos is a 20yo female with history of seizure disorder (diagnosed in 2019, treated with Lamictal and Keppra). She reports having a generalized seizure approximately every couple of months. Her seizures are often triggered by EtOH use as well as lack of sleep. She reports compliance with her medications and has not missed any doses. She was seen in the ER on 01/04/21 with complaint of seizure x 2 which were witnessed by her roommate. She had a third seizure in the ER and was given Ativan x 2mg as well as Keppra x 1gm. Patient had an unremarkable CT of the head at that time. She was discharged home. Patient returns today after having two generalized seizures. She had a third seizure which was witnessed in the ER. States that she has not been drinking and feels that she is sleeping well. No new medications. Reports compliance with medication. Patient is not established with Neurology in the area. She is scheduled to [facility] Neuro [facility] later this month. ER Course. Ceftriaxone, Lamictal 250mg po, Keppra 1500mg IV, Ativan 2mg IV Allergies Allergy/AdvReac Type Severity Reaction Status Date / Time No Known Allergies Allergy Verified 01/10/21 20:30 Home Medications Medication Instructions Recorded Confirmed Type lamotrigine 200 mg tablet 200 mg PO BID 30 Days #60 tab 01/02/21 01/10/21 Rx (Lamictal) levetiracetam 100 mg/mL oral 1,500 mg PO BID 01/10/21 01/10/21 History solution Past Med/Surg History Medical History (Updated 01/11/21 @ 02:55 by Odalis Pittman DO) Seizure disorder Surgical History (Updated 01/11/21 @ 02:55 by Odalis Pittman DO) History of tonsillectomy Family History (Updated 01/11/21 @ 02:55 by Odalis Pittman DO) Other No significant family history Social History Smoking Status: Never smoker Hx Alcohol Use: No Hx Substance Use: No Preferred Language: [place] Communication Ability: Effective Knife Setter Required: No Beliefs That Will Affect Care: None Current Living Situation: Other Current Living Situation Comment: lives in apartment with 4 roomates Other Information That Helps Us Care for You: No Feels Safe at Home: Yes Safety Concerns: Feels Safe At This Time Assistive Devices: None Review of Systems Review of Systems: All systems reviewed & are unremarkable except as noted in HPI & below Physical Exam Physical Exam: General: patient somnolent after receiving Ativan, post-ictal, answering questions, NAD, non-toxic in appearance Skin: warm, dry, intact, small abrasion on left cheek, no bleeding or evidence of infection HEENT: NC/AT, PERRL, EOMI, anicteric sclera, conjunctiva without injection, external ear normal to inspection and nontender, nares patent, moist mucus membranes, dentition intact, no oropharyngeal lesions, neck supple, trachea midline, no LAD, no thyromegaly, no JVD Heart: +S1/S2, regular, no m/r/g Lungs: equal air entry bilaterally, no rales/rhonchi/wheezes Abd: +BS, soft, NT/ND, no masses/organomegaly/ascites Ext: warm, 2+ pulses in UE/LE bilaterally, no clubbing/cyanosis or edema Neuro: nonfocal, patient AA&O x 4, speech intact, no facial droop, moving all extremities on command with equal strength 5/5 Results & Data Results & Data ([facility]) Vital Signs (Past 12 Hours) Vital Signs Temp Pulse Pulse Resp BP BP Pulse Ox 01/10/21 22:00 87 14 86/53 L 93 01/10/21 21:30 87 15 104/68 96 01/10/21 21:00 89 14 125/66 97 01/10/21 20:30 119 H 15 132/82 100 01/10/21 20:04 75 20 113/67 96 01/10/21 20:03 78 12 113/67 98 01/10/21 19:34 36.6 C 66 16 102/72 100 Laboratory Results Laboratory Results WBC 9.69 K/uL (4.8-10.8) 01/10/21 19:40 RBC 3.90 M/uL (4.2-5.4) L 01/10/21 19:40 Hgb 12.1 g/dL (12.0-16.0) 01/10/21 19:40 Hct 34.9 % (37-47) L 01/10/21 19:40 MCV 89.5 fL (80-100) 01/10/21 19:40 MCH 31.0 pg (25-34) 01/10/21 19:40 MCHC 34.7 g/dL (32-36) 01/10/21 19:40 RDW Std Deviation 41.0 fL (36.4-46.3) 01/10/21 19:40 RDW Coeff of [place] 12.7 % (11.5-14.5) 01/10/21 19:40 Plt Count 269 K/uL (130-400) 01/10/21 19:40 MPV 9.2 fL (7.4-10.4) 01/10/21 19:40 Immature Gran % (Auto) 0.1 % 01/10/21 19:40 Neut % (Auto) 80.2 % 01/10/21 19:40 Lymph % (Auto) 14.0 % 01/10/21 19:40 [place] % (Auto) 5.4 % 01/10/21 19:40 Eos % (Auto) 0.1 % 01/10/21 19:40 Baso % (Auto) 0.2 % 01/10/21 19:40 Neut # (Auto) 7.77 K/uL (1.4-6.5) H 01/10/21 19:40 Lymph # (Auto) 1.36 K/uL (1.2-3.4) 01/10/21 19:40 [place] # (Auto) 0.52 K/uL (0.11-0.59) 01/10/21 19:40 Eos # (Auto) 0.01 K/uL (0-0.5) 01/10/21 19:40 Baso # (Auto) 0.02 K/uL (0-0.2) 01/10/21 19:40 Immature Gran # (Auto) 0.01 K/uL (0.00-0.02) 01/10/21 19:40 Sodium 136 mmol/L (136-145) 01/10/21 19:40 Potassium 4.0 mmol/L (3.5-5.1) 01/10/21 19:40 Chloride 104 mmol/L (98-107) 01/10/21 19:40 Carbon Dioxide 28 mmol/L (21-32) 01/10/21 19:40 Anion Gap 4.0 (3-11) 01/10/21 19:40 BUN 5 mg/dl (7-18) L 01/10/21 19:40 Creatinine 0.85 mg/dl (0.6-1.2) 01/10/21 19:40 Est Cr Clr Drug Dosing 90.4 ml/min 01/10/21 19:40 Est GFR ( Amer) 113.5 ml/min 01/10/21 19:40 Est GFR (Non-Af Amer) 97.9 ml/min 01/10/21 19:40 BUN/Creatinine Ratio 5.7 (10-20) L 01/10/21 19:40 Glucose 138 mg/dl (70-99) H 01/10/21 19:40 Calcium 9.1 mg/dl (8.5-10.1) 01/10/21 19:40 Total Bilirubin 0.6 mg/dl (0.2-1) 01/10/21 19:40 AST 12 U/L (15-37) L 01/10/21 19:40 ALT 14 U/L (12-78) 01/10/21 19:40 Alkaline Phosphatase 61 U/L (45-117) 01/10/21 19:40 Total Protein 7.4 gm/dl (6.4-8.2) 01/10/21 19:40 Albumin 3.8 gm/dl (3.4-5.0) 01/10/21 19:40 Globulin 3.6 gm/dl (2.5-4.0) 01/10/21 19:40 Albumin/Globulin Ratio 1.1 (0.9-2) 01/10/21 19:40 COVID-19 Eval Order Covid19 at [facility] 01/10/21 21:25 SARS-CoV-2 (PCR) NEGATIVE (Negative) 01/10/21 21:[address] 01/10/21 20:[address] WITHOUT CONTRAST CLINICAL HISTORY: seizure, left maxilla contusion COMPARISON STUDY: Head CT January 02, 2021. TECHNIQUE: A maxillofacial CT was performed without IV contrast. Coronal and sagittal reformats were viewed. Automated exposure control was utilized for the study. A dose lowering technique was utilized adhering to the principles of ALARA. FINDINGS: Globes are intact with no retrobulbar hematoma. No acute facial fracture is present. Left frontal sinus is largely opacified. Left anterior ethmoid sinuses are also opacified. There is mild polypoid mucosal thickening of the maxillary sinuses. Paranasal sinus opacification has increased since prior CT and MRI. Alignment of the temporomandibular joints is anatomic. There is no skull base fracture. No acute fracture within visualized portions of the upper cervical spine is present. The orbital floors are intact. IMPRESSION: 1. No acute facial fracture. 2. Paranasal sinus opacification, as described above. This has increased since prior CT of January 02, 2021. ACT 112: Negative or not required by law. Electronically signed by: Angelo Huang M.D. 01/10/2021 9:[address] 01/10/21 20:34 CT OF THE HEAD WITHOUT CONTRAST CLINICAL HISTORY: seizure, [facility] COMPARISON STUDY: Head CT and MRI of the brain January 02, 2021. CT DOSE: 780.27 mGy.cm TECHNIQUE: Helical axial images of the head were obtained without IV contrast. Automated exposure control was utilized for the study. A dose lowering technique was utilized adhering to the principles of ALARA. FINDINGS: No acute intracranial hemorrhage, midline shift or mass effect is present. The ventricular system is unremarkable. The basal cisterns are patent. No extra-axial collections are present. There are no findings to suggest acute dural sinus thrombosis or acute territorial infarct. No calvarial fracture is identified. Left frontal sinus is largely opacified and contains secretions. There is also left anterior ethmoid sinus mucosal thickening. These findings are better depicted on the facial bone CT which will be reported separately. This has increased since prior CT. IMPRESSION: 1. No acute intracranial findings. 2. No calvarial fracture. 3. Left frontal and ethmoid sinus opacification, as described above. This is better depicted on the facial bone CT which will be reported separately. ACT 112: Negative or not required by law. Electronically signed by: Angelo Huang M.D. 01/10/2021 9:00 PM PG Care Time/CCT Total # of Minutes Spent Total Time Spent with Patient: Total time spent is greater than 50% in coordination of care (as documented) at patient's floor/unit and/or counseling patient: Coding Level of Care Code INT OBSERVATION CARE 50M LVL 2 Diagnoses Seizure disorder G40.909
[2021-01-11] MEDS ORDERED: ACETAMINOPHEN 325 MG TAB PO PRN (00:54)
[2021-01-11] MEDS ORDERED: ONDANSETRON INJ 2 MG/ML 2 ML VIAL IV PRN (00:54)
[2021-01-11] MEDS ORDERED: SODIUM CHLORIDE 0.65% NA SOLN 45 ML (OCEAN) PRN (03:00)
--- NOTE | 2021-01-11 08:31 | Neurology Consultation ---
Date of Consultation January 11, 2021 Assessment & Plan (1) Seizure disorder: Seizure disorder beginning 2 years ago. Unremarkable evaluations including recent EEG and MRI done at [facility] 1-2 weeks ago and previously, back home at [facility]. She continues to experience seizures in spite of being prescribed what would typically be therapeutic dosages for both Lamictal and Keppra. It is notable that her Lamictal level from her last admission was only 1.1 with a typical therapeutic range between 4 and 18. However, she reports that she has been taking her medication as prescribed including the most recent lamotrigine dosage increase that was recommended during her last hospitalization. She has been taking her Keppra. At this point, this patient does not have an electrically confirmed diagnosis of epilepsy. I am uncertain if she has truly been compliant with her anticonvulsant medication regimen based on previous lamotrigine level. I am also unable to exclude the possibility of psychogenic nonepileptic seizures in this patient given her negative evaluations thus far. I have recommended increasing her dosage of lamotrigine from 200 mg twice daily to 250 mg twice daily. Patient should continue with Keppra 1500 mg twice daily. I will also like her to have a Keppra level drawn. An up-to-date Lamictal level is pending. I do not think another EEG or MRI at our institution is necessary at this time. She will need inpatient video EEG monitoring to better characterize her spells. This type of testing will likely be completed in [place] after she has been evaluated by a specialist affiliated with [facility] this coming March. Assuming patient remains clinically stable throughout the day, she can be discharged to home. She does not drive. 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 I first became acquainted with her case during her admission to the [facility] 1-2 weeks ago. Please see my neurology consultation from January 02, 2021 for details. Briefly, her first seizure occurred at age 18 and may have been triggered by alcohol consumption at that time. She has had several seizure types including brief jerking of the limbs and occasional generalized convulsive seizures with associated tongue bite and minor injuries including scraping and bruising of the skin. She does not recall experiencing any aura. Her seizures have been incompletely controlled with the events occurring up to several times per month. No menstrual associated pattern. No obvious triggering factors. She has been evaluated by 2 different neurologists back home. Her current neurologist is affiliated with [facility]. She is prescribed Keppra and Lamictal for seizure control. She has an appointment pending with a specialist at [facility] in March and will likely have prolonged video EEG monitoring. Patient's previous evaluations have been unremarkable including MRI and EEG done back home and at [facility] during her last admission. I do note that a lamotrigine level drawn on January 02, 2021 was 1.1, typical therapeutic range between 4 and 18. The patient does remark that she has been taking her anticonvulsant medication regularly. She is not prescribed any other medication. She had presented to the emergency department yesterday evening after experiencing another one of her typical convulsive episodes. The patient recalls that she had been texting her mother at the time of the event. She does not recall specifics but apparently awoke on the ground, she had struck the left side of her face and has a minor abrasion around the left eye. She had another witnessed episode during her evaluation in the emergency department last night, duration about 60 seconds, she was treated with lorazepam, confused for about 5 to 10 minutes afterwards. Patient had a CT of the head completed last night that was unremarkable. The emergency department physician had contacted me to discuss her case. I had recommended increasing her dosage of lamotrigine further, to 250 mg twice daily, continue with Keppra 1500 mg twice daily. Patient has been admitted overnight for observation and to ensure that she is clinically stable before potentially discharging her. This morning, the patient is feeling well. She does remark that she has been having a bit more headaches lately, but nothing significant this morning. She remains partially amnestic for her recent seizures. She is a bit slow to answer questions but is oriented, attentive, and appropriate. Patient denies a family history of epilepsy or seizure disorder. Patient denies alcohol consumption. Allergies Allergy/AdvReac Type Severity Reaction Status Date / Time No Known Allergies Allergy Verified 01/10/21 20:30 Home Medications Medication Instructions Recorded Confirmed Type lamotrigine 200 mg tablet 200 mg PO BID 30 Days #60 tab 01/02/21 01/10/21 Rx (Lamictal) levetiracetam 100 mg/mL oral 1,500 mg PO BID 01/10/21 01/10/21 History solution Patient History Medical History Seizure disorder Surgical History History of tonsillectomy Family History Other No significant family history Social History Smoking Status: Never smoker Hx Alcohol Use: No Hx Substance Use: No Preferred Language: Divehi Communication Ability: Effective Aerospace Assembler Required: No Beliefs That Will Affect Care: None Current Living Situation: Other Current Living Situation Comment: lives in apartment with 4 roomates Other Information That Helps Us Care for You: No Feels Safe at Home: Yes Safety Concerns: Feels Safe At This Time Assistive Devices: None Review of Systems Constitutional: no fever and no chills Eyes: no blind spots and no diplopia Ear, Nose, Mouth, Throat: no ear pain and no hearing loss Respiratory: no cough and no dyspnea Cardiovascular: no chest pain and no palpitations Gastrointestinal: no constipation and no diarrhea/loose stools Genitourinary: no urinary urgency and no urinary incontinence Musculoskeletal: no muscle weakness and no muscle atrophy Integumentary: no rash and no lesions Neurologic: as per Subjective / HPI Psychiatric: no behavioral changes, no depression, no abnormal sleep pattern and no anxiety Hematologic / Lymphatic: no easy bruising and no lymphadenopathy Exam (Neuro) Constitutional: well developed and well nourished; no acute distress Eyes: normal visual ferreira by confrontation, PERRL, normal accommodation and EOM intact bilaterally; no fundoscopic abnormality, no nystagmus and no papilledema Cardiovascular: Vessels: normal carotid upstroke; no carotid bruit Neurologic: Oriented to:: Person, Place and Time Memory: Short Term Intact and Remote Intact Attention: Span Intact and Concentration Intact Language: Naming Objects and Repeating Phrases Speech Fluency: negative Dysarthria Speech Aphasia: negative Aphasia Fund of Knowledge: Current Events, Past History and Vocabulary Cranial Nerves: Normal II (Visual ferreira full to confrontation, visual acuity normal), III, IV, (Pupils equal round reactive to light and accommodation, eye movements normal), V (Facial sensation intact), VII (There is no facial droop or weakness), VIII (Hearing intact), IX, X (Palate elevates to midline), XI (Shoulder shrug intact) and XII (Tongue protrudes to midline) Motor Strength: Normal Lower Extremities and Normal Upper Extremities; negative Pronator Drift Motor Tone: Normal Lower Extremities and Normal Upper Extremities Muscle Bulk/Involuntary Movements: No Involuntary Movements; negative Muscle Atrophy Sensation: Light Touch Intact, Pain/Temperature Intact, Vibration Intact and Proprioception Intact Coordination: Normal; negative Limited Balance, Dysdiadochokinesia, Finger-Nose Abnormal or Heel-Briggs Abnormal Deep Tendon Reflexes: Rt Triceps: 2+, Lt Triceps: 2+, Rt Biceps: 2+, Lt Biceps: 2+, Rt Brachioradialis: 2+, Lt Brachioradialis: 2+, Rt Patellar: 2+, Lt Patellar: 2+, Rt Ankle: 2+ and Lt Ankle: 2+ Special Tests: negative Babinski Present Gait: Normal Station and Gait Results & Data ([facility]) Vital Signs (Past 12 Hours) Vital Signs Temp Pulse Pulse Pulse Resp BP BP 01/11/21 07:34 36.6 C 63 14 106/66 01/11/21 00:25 36.6 C 76 16 99/65 L 01/11/21 00:00 77 13 112/75 01/10/21 23:30 85 16 104/72 01/10/21 23:00 75 12 106/68 01/10/21 22:30 91 H 13 96/74 L 01/10/21 22:00 87 14 86/53 L 01/10/21 21:30 87 15 104/68 01/10/21 21:00 89 14 125/66 01/10/21 20:30 119 H 15 132/82 Pulse Ox 01/11/21 07:34 98 01/11/21 00:25 97 01/11/21 00:00 98 01/10/21 23:30 99 01/10/21 23:00 97 01/10/21 22:30 97 01/10/21 22:00 93 01/10/21 21:30 96 01/10/21 21:00 97 01/10/21 20:30 100 Laboratory Results WBC 9.69, hemoglobin 12.1, hematocrit 34.9, platelet count 269, sodium 136, potassium 4.0, BUN 5, creatinine 0.85, glucose 138, calcium 9.1,, AST 12, ALT 14, albumin 3.8, lamotrigine level drawn today pending, lamotrigine level drawn January 02, 2021 was 1.1. SARS-CoV-[address] of the head completed yesterday was negative for hemorrhage or acute process. Left frontal and ethmoid sinus opacification noted. Previous brain MRI, seizure protocol, done with and without gadolinium enhancement on January 02, 2021 was unremarkable including high-resolution images through the temporal lobes. Previous EEG completed January 02, 2021 was unremarkable, no epileptiform abnormalities. An electrocardiogram completed yesterday revealed a normal sinus rhythm, 78 bpm. Coding Level of Care Code 60564 Initial Inpt Care Lvl 3 Diagnoses Seizure disorder G40.909
[2021-01-11] MEDS ORDERED: lamoTRIgine 100 MG TAB PO SCH (09:00)
[2021-01-11] MEDS ORDERED: levETIRAcetam 500 MG TAB PO SCH (09:00)
[2021-01-11] MEDS ORDERED: levETIRAcetam ORAL SOLN 100MG/ML PO SCH (09:30)
--- NOTE | 2021-01-11 09:51 | Electrocardiogram Report ---
Test Reason : Blood Pressure : / mmHG Vent. Rate : 078 BPM Atrial Rate : 078 BPM P-R Int : 190 ms QRS Dur : 074 ms QT Int : 372 ms P-R-T Axes : 061 083 057 degrees QTc Int : 424 ms Normal sinus rhythm Normal ECG When compared with ECG of 02-JAN-2021 00:25, No significant change was found Confirmed by Víctor Mohan ([id number]) on 01/11/2021 9:51:00 AM Referred By: REFERRED SELF Confirmed By:Víctor Mohan
--- NOTE | 2021-01-11 19:12 | Discharge Summary ---
Date of Service January 11, 2021 Admission HPI Per Admitting Provider Jeannie Campos is a 20yo female with history of seizure disorder (diagnosed in 2019, treated with Lamictal and Keppra). She reports having a generalized seizure approximately every couple of months. Her seizures are often triggered by EtOH use as well as lack of sleep. She reports compliance with her medications and has not missed any doses. She was seen in the ER on 01/04/21 with complaint of seizure x 2 which were witnessed by her roommate. She had a third seizure in the ER and was given Ativan x 2mg as well as Keppra x 1gm. Patient had an unremarkable CT of the head at that time. She was discharged home. Patient returns today after having two generalized seizures. She had a third seizure which was witnessed in the ER. States that she has not been drinking and feels that she is sleeping well. No new medications. Reports compliance with medication. Patient is not established with Neurology in the area. She is scheduled to see Neuro at [facility] later this month. ER Course. Ceftriaxone, Lamictal 250mg po, Keppra 1500mg IV, Ativan 2mg IV Principal Diagnosis Seizure-like activity Discharge Exam The patient appeared well have ecchymosis near her left eye on her on her leg Vital signs as documented. Lungs are clear to auscultation and appear unlabored Cardiac exam, Rhythm is regular.. No murmurs, rubs or gallops. Abdominal exam reveals normal bowel sounds, soft non tender, no masses Extremities are nonedematous and both pedal pulses are normal. Neurologic exam is alert and oriented, no focal loss of strength or sensation Skin is with present on her left thigh and left leg Psychologically is without concerns for anxiety or depression. Discharge Data Allergies Allergy/AdvReac Type Severity Reaction Status Date / Time No Known Allergies Allergy Verified 01/10/21 20:30 Consultations 01/11/21 00:54 Consult Neurology Routine Ordered Studies 01/10/21 20:34 CT facial bones wo con Stat CT head/brain wo con Stat Hospital Course (1) Seizure disorder: 20yo female with known seizure disorder on Lamictal and Keppra presenting with seizure x 3 today. Patient was seen in the ER on 01/04/21 for seizure as well. Workup is unremarkable. Uncertain of trigger. Patient is compliant with medication -Observation to medical - neurology consult ->Seizure disorder beginning 2 years ago. Unremarkable evaluations including recent EEG and MRI done at [facility] 1- 1/2 weeks ago and previously, back home at [facility]. She continues to experience seizures in spite of being prescribed what would typically be therapeutic dosages for both Lamictal and Keppra. It is notable that her Lamictal level from her last admission was only 1.1 with a typical therapeutic range between 4 and 18. However, she reports that she has been taking her medication as prescribed including the most recent lamotrigine dosage increase that was recommended during her last hospitalization. She has been taking her Keppra. At this point, this patient does not have an electrically confirmed diagnosis of epilepsy. I am uncertain if she has truly been compliant with her anticonvulsant medication regimen based on previous lamotrigine level. I am also unable to exclude the possibility of psychogenic nonepileptic seizures in this patient given her negative evaluations thus far. I have recommended increasing her dosage of lamotrigine from 200 mg twice daily to 250 mg twice daily. Patient should continue with Keppra 1500 mg twice daily. I will also like her to have a Keppra level drawn. An up-to-date Lamictal level is pending. I do not think another EEG or MRI at our institution is necessary at this time. She will need inpatient video EEG monitoring to better characterize her spells. This type of testing will likely be completed in [place] after she has been evaluated by a specialist affiliated with [facility] this coming March. I spoke to mother at length about the seizure like episodes are possible psychogenic nonepileptic seizures and asked the mother to consider psychiatric counseling. Mother is first going to look into epilepsy monitoring unit either [place] or [place]. Patient was given escalated doses of Lamictal as listed above. Interestingly when I phoned the pharmacy the pharmacy only had records of the patient getting Keppra but did not have records of the Lamictal. Is unclear whether the patient got her initial Lamictal dosing. Patient voiced understanding of this plan and will be discharged to the care of her mother Code - Full l Total Time Total Time Spent Total Time Spent (In Minutes): It required greater than 30 minutes to prepare this patient for discharge Discharge Plan Discharge Items Patient Disposition: Home - Self-Care Reason For Visit: SEIZURE Discharge Diagnosis: seizure like episode Activity: Resume your previous activity Non-emergency contact: Primary Care Provider and Neurologist Call non-emergency contact if: you have any medication questions and your symptoms worsen Follow-up/Referrals: PCP,NO [Primary Care Provider] - (PATIENT AND MOTHER HAVE STATED THE PATIENT WILL DO A HOSPITAL F/U AT [facility] WHERE HER NEUROLOGIST IS LOCATED.) Diet: Regular Addtl Attending Provider Instructions: your lamictal has been increased to 250 mg twice a day and continue keppra, please look to getting into the epilepsy monitoring unit to further confirm your diagnosis please limit your stressors, try to regulate your sleep, avoid alcohol or excessive stimulants follow up with your neurologist or [facility] at their next available appointment Pending Studies at Discharge: No Stand-Alone Forms: My [facility] 911 Pets, Smoking Cessation Medications and DC Order Prescriptions: New lamotrigine [Lamictal] 25 mg tablet 50 mg PO BID 14 Days Qty: 56 RF: 0 Continued lamotrigine [Lamictal] 200 mg tablet 200 mg PO BID 30 Days Qty: 60 RF: 0 levetiracetam 100 mg/mL solution 1,500 mg PO BID RF: 0 Discharge Orders: Discharge Order (Routine); Ordered 01/11/21 Ordered By: Rito Shukla Admission Data Admit Date/Time: 01/10/21 22:22 Attending Provider: Rito Shukla Admit Provider: Odalis Pittman Primary Care Provider: PCP,NO Other Providers: Peewee Holden Other Interventions: Discharge Summary Assessment (RN) Last Done: 01/11/21 13:41 Coding Level of Care Code 51433 OBS Care - Discharge Diagnoses Seizure disorder G40.909
== END 2021-01-11 14:38 | disposition home or self-care (01) ==
LOC: ED 19:32 → 3E 19:32 → SUATTDRO 22:22 → 3E 01-11 00:12

== ENCOUNTER 2021-03-07 14:49 | Observation (INO) ==
[2021-03-07 15:23] LABS: Basophils # (auto) 0.03 K/uL (0-0.2); Basophils % (auto) 0.5 %; Eosinophils # (auto) 0.06 K/uL (0-0.5); Eosinophils % (auto) 0.9 %; Hematocrit (blood only) 38.9 % (37-47); Hemoglobin 13.2 g/dL (12.0-16.0); Immature Granulocytes # (auto) 0.01 K/uL (0.00-0.02); Immature Granulocytes % (auto) 0.2 %; Lymphocytes # (auto) 1.51 K/uL (1.2-3.4); Lymphocytes % (auto) 23.4 %; Mean Corpuscular Hemoglobin 31.4 pg (25-34); Mean Corpuscular Hgb Conc 33.9 g/dL (32-36); Mean Corpuscular Volume 92.6 fL (80-100); Mean Platelet Volume 9.7 fL (7.4-10.4); Monocytes # (auto) 0.67 K/uL (0.11-0.59); Monocytes % (auto) 10.4 %; Neutrophils # (auto) 4.16 K/uL (1.4-6.5); Neutrophils % (auto) 64.6 %; Platelet Count 254 K/uL (130-400); RDW Coefficient of Variation 12.8 % (11.5-14.5); RDW Standard Deviation 43.1 fL (36.4-46.3); White Blood Count 6.44 K/uL (4.8-10.8)
[2021-03-07 15:44] LABS: Albumin Level 3.8 gm/dl (3.4-5.0); BUN Creatinine Ratio 12.3 (10-20); Calcium 8.9 mg/dl (8.5-10.1); Creatinine Clr Calc Pharmacy 102.8 ml/min; Est GFR (African American) 120.3 ml/min; Est GFR (Non-African American) 103.8 ml/min
[2021-03-07] MEDS ORDERED: SODIUM CHLORIDE 0.9% 1000ML 1,000 ML IV ONE (15:46)
[2021-03-07] MEDS ORDERED: LIDOCAINE/EPINEPH/TETRACAINE 1 EA SYR EXT STA (15:46)
[2021-03-07 15:47] LABS: Bilirubin,Total 0.5 mg/dl (0.2-1); Globulin 3.7 gm/dl (2.5-4.0); Total Protein 7.5 gm/dl (6.4-8.2)
--- NOTE | 2021-03-07 15:48 | Emergency Department Note ---
Impression & Plan Generalized seizure, Facial laceration ED Provider Note CHIEF COMPLAINT: Seizure HISTORY OF PRESENTING ILLNESS: This is a 20-year-old female who presents to the emergency department by private vehicle with complaint of a seizure that occurred around 2 PM today. Patient states that she has a history of seizures and she believes that this was a normal seizure for her. She states that the s eizure occurred while she was in the bathroom and she struck her head on the corner of the bathroom counter. The seizure was not witnessed, but the patient's roommates found the patient in the bathroom disoriented and brought her here to the emergency department for evaluation. Patient states that she is on Keppra and Lamictal for her seizures and recently had her Lamictal dose increased about 2 months ago because she was having increased seizures. She states that she has been having a few seizures every month for the past few months, but this is the first seizure she has had since increasing her medications. She has a laceration on her right eyebrow that is causing her some pain which she rates 4/10, but she denies a diffuse headache and denies any neck pain. She denies any other injuries from the fall. She was able to walk without difficulty. She states she initially was feeling confused after the seizure, but she is starting to feel like she is getting back to her usual self. Her tetanus is up-to-date. She does admit that she drank alcohol last night which has been a trigger for her seizures in the past. She denies any recent fevers or chills or feeling ill and denies any cough or URI symptoms. She denies any urinary symptoms. She denies any chest pain, shortness of breath, abdominal pain or back pain. She is followed by neurology in the [facility]. REVIEW OF SYSTEMS: A complete 10 point review of systems was reviewed with the patient with pertinent positives and negatives as per history of present illness. All else were negative. PAST MEDICAL HISTORY: Seizure disorder SOCIAL HISTORY: Lives at home, she is a student, denies tobacco use ALLERGIES: No known allergies PHYSICAL EXAM: CONSTITUTIONAL: Pleasant and cooperative. Nontoxic-appearing and in no acute distress. Well appearing and well nourished. HEENT: Normocephalic. Scalp is atraumatic. There is a 2.7 cm laceration through the right eyebrow, edges gape apart. There is minimal active bleeding from the wound. No deep structures such as blood vessels or bone seen in the base of the wound. PERRLA, EOMI with no nystagmus. TMs normal, no hemotympanum bilaterally. Pharynx normal. NECK: Supple, full active range of motion without discomfort. No midline tenderness to palpation of the cervical spine. RESPIRATORY: Clear to auscultation bilaterally with no wheezing, crackles, rhon chi or stridor. Equal expansion bilaterally. CARDIOVASCULAR: Regular rate and rhythm with no murmurs, rubs or gallops. Normal peripheral perfusion. No edema. GASTROINTESTINAL: Soft, nontender, nondistended. No palpable masses or HSM. Bowel sounds present in all quadrants. MUSCULOSKELETAL: Full range of motion of all joints without discomfort. INTEGUMENTARY: No rash or other significant dermatologic conditions noted. NEUROLOGIC: Alert and oriented X 4 with normal affect. Cranial nerves II-XII grossly intact, no facial droop. No pronator drift. No focal neurologic deficits noted. Normal strength and sensation in all 4 extremities. Normal speech. ED COURSE AND MEDICAL DECISION MAKING: CC: Patient presenting with complaint of seizure DIFFERENTIAL DIAGNOSIS: Includes, but not limited to epilepsy, infection, hypoglycemia, electrolyte abnormalities, cardiac sources, intracerebral event, trauma, toxicologic, neurologic, syncope, as well as other pathologies. INTERPRETATION OF LABS: No leukocytosis, no anemia, normal platelets, no significant electrolyte abnormalities, normal renal function, normal liver enzymes. SARS-CoV-2 RNA negative. EKG: Shows normal sinus rhythm with a rate of 83 bpm, normal intervals, no ST elevation or depression, no ectopy, no significant change when compared to previous EKG from 01/10/2021 by my interpretation. MEDICATION RECONCILIATION: I attest that I have personally reviewed the patient's current medication list. INITIAL VITAL SIGNS REVIEW: I reviewed the patient's initial vital signs and interpret them as follows: T: Afebrile; BP: Normotensive; HR: Mildly tachycardic; RR: Within normal limits; Pulse Ox: Within normal limits on room air. PROCEDURE NOTE: Facial Laceration Repair Verbal consent was obtained from the patient to perform the procedure. LET gel was applied to the laceration for anesthesia. Once the patient was anesthetized, and using sterile technique, the wound was cleansed with Betadine. The area was sterilely draped. The wound was copiously irrigated under pressure with sterile saline. The wound was explored and was as described above. The laceration was repaired using 7 simple interrupted 6-0 nylon sutures with the wound edges being well approximated. The patient tolerated the procedure well. Hemostasis was achieved. The area was cleaned with sterile saline and dressed with bacitracin ointment. MDM SUMMARY: Patient was evaluated at bedside, history and physical exam performed. Seizure precautions were initiated by nursing staff and initial labs were sent per nursing protocol. Patient is alert and oriented, in no acute distress, resting calmly in the stretcher. Neurologic exam is intact with no focal deficits. Laceration noted to the right eyebrow as above. The patient notes a history of seizures, and has been admitted twice previously in the past few months for seizures. She has had increases in the doses of her medications for her seizures, most recently about 2 months ago she states that they increased her Lamictal from 200 mg twice a day to 250 mg twice a day. She is already on 1500 mg of Keppra twice a day. Cardiac monitoring: An order was placed for continuous cardiac monitoring. The monitor shows a rate of 98 bpm with normal sinus rhythm. Labs were reviewed, no significant abnormalities noted. EKG showed normal sinus rhythm with no acute ischemic changes. Additional orders were placed for CT imaging of the head and cervical spine, IV fluid bolus for hydration, UA, urine , and urine drug profile. Patient discussed with Dr. Masters, who agrees with my assessment, plan, and disposition. CT imaging reviewed, no acute findings. Laceration was repaired as above and the patient was doing well. I discussed discharge planning with the patient and she was comfortable with this. Shortly after I left the room, nursing staff called me stating the patient had another seizure. The seizure lasted approximately 1 minute, was witnessed by staff and was described as generalized shaking, and the patient did drop her oxygen saturation into the low 70s. She was placed on a nonrebreather mask by the nursing staff. I did assess the patient immediately after the seizure occurred, she is no longer seizing and is awake, but is now groggy and confused. The patient was assessed at bedside by Dr. Masters as well. Given that this is the patient's second seizure today, she was given 1 mg IV Ativan prophylactically. I spoke on the phone with Dr. Chandler, neurology, who recommended giving the patient a loading dose of Keppra 500 mg IV and increasing her Lamictal to 275 mg twice a day. He did also recommend if she has a third seizure to give her a dose of Vimpat. Lamictal and Keppra levels were also sent to the lab. Given that the patient is having recurrent seizures on fairly high doses of medication, and has had 2 seizures already today, I did feel she warranted admission for further evaluation and adjustment of medications. I spoke on the phone with the [facility] Hospitalist who agrees to evaluate the patient for admission. Additional orders were placed for creatinine kinase and lactate per the hospitalist's request. The patient was updated regarding the plan for admission, she verbalized understanding. She is still somewhat groggy, but has otherwise remained stable. The patient was stable at the time of admission. CRITICAL CARE NOTE: I have personally spent greater than 37 minutes of critical care time in the direct management of this patient. This includes bedside care, interpretation of diagnostic studies, and testing, discussion with consultants, patient, and family members, and other required patient management activities. This 37 minutes is in excess of all separately billable procedures. The chart was completed utilizing [employer] Speech voice recognition software. Grammatical errors, random word insertions, pronoun errors, and incomplete sentences are an occasional consequence of this system due to software limitatio ns, ambient noise, and hardware issues. Any formal questions or concerns about the content, text, or information contained within the body of this dictation should be directly addressed to the nurse practitioner for clarification. Past Med/Surg History Medical History Seizure disorder Surgical History History of tonsillectomy Family History Other No significant family history Social History Smoking Status: Never smoker Hx Alcohol Use: No Hx Substance Use: No Preferred Language: Scottish Communication Ability: Effective Typesetter Apprentice Required: No Beliefs That Will Affect Care: None Current Living Situation: Other Current Living Situation Comment: lives in apartment with 4 roomates Feels Safe at Home: Yes Assistive Devices: None Allergies Allergies Allergy/AdvReac Type Severity Reaction Status Date / Time No Known Allergies Allergy Verified 03/07/21 17:32 Home Meds Home Medications Medication Instructions Recorded Confirmed levetiracetam 100 mg/mL oral 1,500 mg PO BID 01/10/21 03/07/21 solution lamotrigine 100 mg tablet 200 mg PO BID 03/07/21 03/07/21 lamotrigine 25 mg chewable 50 mg PO BID 03/07/21 03/07/21 dispersible tablet Results & Data (ED) Vital Signs Vital Signs - 24 hr 03/07/21 14:59 03/07/21 16:20 03/07/21 16:30 Temperature 36.7 C Temperature Source Temporal Artery Scan Pulse Rate 96 H 71 76 Pulse Rate [Apical] Pulse Rate from SpO2 Sensor 70 77 Respiratory Rate 16 12 20 Respiratory Effort / Characteristics Non-Labored Respiratory Depth Normal Respiratory Pattern Blood Pressure 109/69 103/61 Blood Pressure [Right Arm] Blood Pressure Mean 82 75 Blood Pressure Mean [Right Arm] Pulse Oximetry 97 96 97 Oxygen Delivery Method Sepsis Recent Fever Within 48 Hours No Sepsis New/Unexplained Change in Mental Status No Sepsis Action Taken by Nursing No Action Required 03/07/21 16:45 03/07/21 17:00 03/07/21 17:30 Temperature Temperature Source Pulse Rate 84 76 Pulse Rate [Apical] 81 Pulse Rate from SpO2 Sensor 78 76 Respiratory Rate 18 17 16 Respiratory Effort / Characteristics Non-Labored Spontaneous Respiratory Depth Normal Respiratory Pattern Regular Blood Pressure 105/70 107/78 Blood Pressure [Right Arm] 103/61 Blood Pressure Mean 81 87 Blood Pressure Mean [Right Arm] 75 Pulse Oximetry 98 100 100 Oxygen Delivery Method Room Air Sepsis Recent Fever Within 48 Hours Sepsis New/Unexplained Change in Mental Status Sepsis Action Taken by Nursing 03/07/21 18:00 03/07/21 18:30 03/07/21 19:00 Temperature Temperature Source Pulse Rate 105 H 92 H 94 H Pulse Rate [Apical] Pulse Rate from SpO2 Sensor 106 H 93 H Respiratory Rate 15 16 14 Respiratory Effort / Characteristics Respiratory Depth Respiratory Pattern Blood Pressure 125/67 115/65 118/79 Blood Pressure [Right Arm] Blood Pressure Mean 86 81 92 Blood Pressure Mean [Right Arm] Pulse Oximetry 99 97 97 Oxygen Delivery Method Room Air Sepsis Recent Fever Within 48 Hours Sepsis New/Unexplained Change in Mental Status Sepsis Action Taken by Nursing Laboratory Data Result diagrams: 03/07/21 15:14 03/07/21 15:14 Lab Results 03/07/21 03/07/21 03/07/21 Range/Units 15:14 15:14 18:00 WBC 6.44 (4.8-10.8) K/uL RBC 4.20 (4.2-5.4) M/uL Hgb 13.2 (12.0-16.0) g/dL Hct 38.9 (37-47) % MCV 92.6 (80-100) fL MCH 31.4 (25-34) pg MCHC 33.9 (32-36) g/dL RDW Std Deviation 43.1 (36.4-46.3) fL RDW Coeff of Lincoln 12.8 (11.5-14.5) % Plt Count 254 (130-400) K/uL MPV 9.7 (7.4-10.4) fL Immature Gran % (Auto) 0.2 % Neut % (Auto) 64.6 % Lymph % (Auto) 23.4 % Addison % (Auto) 10.4 % Eos % (Auto) 0.9 % Baso % (Auto) 0.5 % Neut # (Auto) 4.16 (1.4-6.5) K/uL Lymph # (Auto) 1.51 (1.2-3.4) K/uL Addison # (Auto) 0.67 H (0.11-0.59) K/uL Eos # (Auto) 0.06 (0-0.5) K/uL Baso # (Auto) 0.03 (0-0.2) K/uL Immature Gran # (Auto) 0.01 (0.00-0.02) K/uL Sodium 139 (136-145) mmol/L Potassium 4.0 (3.5-5.1) mmol/L Chloride 109 H (98-107) mmol/L Carbon Dioxide 25 (21-32) mmol/L Anion Gap 5.0 (3-11) BUN 10 (7-18) mg/dl Creatinine 0.81 (0.6-1.2) mg/dl Est Cr Clr Drug Dosing 102.8 ml/min Est GFR ( Amer) 120.3 ml/min Est GFR (Non-Af Amer) 103.8 ml/min BUN/Creatinine Ratio 12.3 (10-20) Glucose 94 (70-99) mg/dl Lactate (0.4-2.0) mmol/L Calcium 8.9 (8.5-10.1) mg/dl Total Bilirubin 0.5 (0.2-1) mg/dl AST 9 L (15-37) U/L ALT 17 (12-78) U/L Alkaline Phosphatase 58 (45-117) U/L Total Creatine Kinase (26-192) U/L Total Protein 7.5 (6.4-8.2) gm/dl Albumin 3.8 (3.4-5.0) gm/dl Globulin 3.7 (2.5-4.0) gm/dl Albumin/Globulin Ratio 1.0 (0.9-2) SARS-CoV-2, RNA, NAAT NEGATIVE (NEGATIVE) 03/07/21 03/07/21 03/07/21 Range/Units 19:05 19:05 21:22 WBC (4.8-10.8) K/uL RBC (4.2-5.4) M/uL Hgb (12.0-16.0) g/dL Hct (37-47) % MCV (80-100) fL MCH (25-34) pg MCHC (32-36) g/dL RDW Std Deviation (36.4-46.3) fL RDW Coeff of Lincoln (11.5-14.5) % Plt Count (130-400) K/uL MPV (7.4-10.4) fL Immature Gran % (Auto) % Neut % (Auto) % Lymph % (Auto) % Addison % (Auto) % Eos % (Auto) % Baso % (Auto) % Neut # (Auto) (1.4-6.5) K/uL Lymph # (Auto) (1.2-3.4) K/uL Addison # (Auto) (0.11-0.59) K/uL Eos # (Auto) (0-0.5) K/uL Baso # (Auto) (0-0.2) K/uL Immature Gran # (Auto) (0.00-0.02) K/uL Sodium (136-145) mmol/L Potassium (3.5-5.1) mmol/L Chloride (98-107) mmol/L Carbon Dioxide (21-32) mmol/L Anion Gap (3-11) BUN (7-18) mg/dl Creatinine (0.6-1.2) mg/dl Est Cr Clr Drug Dosing ml/min Est GFR ( Amer) ml/min Est GFR (Non-Af Amer) ml/min BUN/Creatinine Ratio (10-20) Glucose (70-99) mg/dl Lactate 2.3 H* 0.7 (0.4-2.0) mmol/L Calcium (8.5-10.1) mg/dl Total Bilirubin (0.2-1) mg/dl AST (15-37) U/L ALT (12-78) U/L Alkaline Phosphatase (45-117) U/L Total Creatine Kinase 53 (26-192) U/L Total Protein (6.4-8.2) gm/dl Albumin (3.4-5.0) gm/dl Globulin (2.5-4.0) gm/dl Albumin/Globulin Ratio (0.9-2) SARS-CoV-2, RNA, NAAT (NEGATIVE) Administered Medications Discontinued Medications Sodium Chloride (Nss 1000ml) 1,000 mls @ 999 mls/hr IV .[id number] ONE Stop: 03/07/21 16:46 Last Infusion: 03/07/21 17:56 Dose: 0 mls/hr Documented by: [id number] Admin: 03/07/21 16:42 Dose: 999 mls/hr Documented by: [id number] Lorazepam (Ativan) 1 mg in 2 mls @ 2 mls/min IV NOW STA Stop: 03/07/21 17:46 Last Admin: 03/07/21 17:56 Dose: Not Given Documented by: [id number] Levetiracetam 500 mg/ Sodium (Chloride) 105 mls @ 440 mls/hr IV NOW STA Stop: 03/07/21 18:23 Last Infusion: 03/07/21 19:10 Dose: 0 mls/hr Documented by: [id number] Admin: 03/07/21 18:36 Dose: 440 mls/hr Documented by: [id number] Lidocaine (Lidocaine/Epineph/Tetracaine 1 Ea Syr) 1 ea EXT NOW STA Stop: 03/07/21 15:47 Last Admin: 03/07/21 16:42 Dose: 1 ea Documented by: [id number] Lorazepam (Lorazepam 2 Mg/Ml Vial (Im Use)) Confirm Administered Dose 2 mg .ROUTE .[employer] ONE Stop: 03/07/21 17:45 Last Admin: 03/07/21 17:56 Dose: 1 mg Documented by: [id number] Imaging Data Radiologist's Impression: Cervical Spine CT 03/07/21 15:31 CT SCAN OF THE CERVICAL SPINE CLINICAL HISTORY: Seizure. Head injury. COMPARISON STUDY: No priors. TECHNIQUE: CT scan of the cervical spine is performed from the skull base to the upper thoracic spine. Images are reviewed in the axial, sagittal, and coronal planes. IV contrast was not administered for this examination. A dose lowering technique was utilized adhering to the principles of ALARA. CT DOSE: 943.64 mGy.cm FINDINGS: Skeletal structures: The skeletal structures are well mineralized. There is no evidence of fracture or subluxation involving the cervical spine. Vertebral body height and alignment are maintained. There is straightening of the cervical lordosis with mild reversal centered at C4-C5. The odontoid process and lateral masses are intact. The atlantoaxial articulation is preserved. The spinous processes appear intact. Intervertebral discs: The disc spaces are well maintained. Central canal: Widely patent. Soft tissues: The prevertebral and paraspinous soft tissues are within normal limits. Calvarium: The visualized calvarium at the skull base appears intact. Brain parenchyma: Partially visualized brain parenchyma at the skull base is within normal limits. Sinuses and mastoids: There is mild mucosal thickening within the maxillary antra. The mastoid air cells are well pneumatized. Lung apices: Clear as visualized. IMPRESSION: There is no evidence of fracture or subluxation involving the cervical spine. ACT 112: Negative or not required by law. Electronically signed by: Jose Turner M.D. 03/07/2021 4:[address] 03/07/21 15:31 CT SCAN OF THE BRAIN WITHOUT IV CONTRAST CLINICAL HISTORY: Seizure. Head injury. COMPARISON STUDY: CT of the brain dated 01/10/2021. TECHNIQUE: Unenhanced axial CT scan of the brain is performed from the vertex to the skull base. A dose lowering technique was utilized adhering to the principles of ALARA. FINDINGS: Brain parenchyma: The brain parenchyma is normal in appearance. There is no hemorrhage, mass effect, or evidence of acute territorial ischemia by CT criteria. Espino-white matter differentiation is preserved. No extra-axial fluid collection is seen. Ventricles, sulci, cisterns: Normal in configuration. Intracranial vasculature: The visualized intracranial vasculature at the skull base is normal in appearance. Calvarium: There is no depressed calvarial fracture. Soft tissues: There is right frontal soft tissue contusion/laceration. Sinuses and mastoids: There is mild mucosal thickening within the maxillary antra. The remaining visualized paranasal sinuses are clear. The mastoid air cells are well pneumatized. Orbits: The bony orbits are grossly intact. IMPRESSION: 1. No acute intracranial abnormality. 2. Right frontal scalp injury. ACT 112: Negative or not required by law. Electronically signed by: Jose Turner M.D. 03/07/2021 4:19 PM Discharge Plan Visit Data Chief Complaint: Seizure Stated Complaint: HAD SEIZURE, LACERATION ABOVE R EYE ED Provider: Minor Masters ED Midlevel Provider: Mckayla Apodaca Discharge Problem: Generalized seizure, Facial laceration Patient Disposition: Admitted As Inpatient Condition: Good Forms Stand Alone Forms: [facility] [employer] Prescriptions Prescriptions: No Action levetiracetam 100 mg/mL solution 1,500 mg PO BID RF: 0 lamotrigine 25 mg tablet, chewable dispersible 50 mg PO BID RF: 0 lamotrigine 100 mg tablet 200 mg PO BID RF: 0 Referrals Referrals: PCP,NO [Primary Care Provider] - Discharge Problem: Facial laceration Qualifiers: Encounter type: initial encounter Qualified Code(s): S01.81XA - Laceration without foreign body of other part of head, initial encounter
--- NOTE | 2021-03-07 16:25 | CT Scan Report ---
CT SCAN OF THE BRAIN WITHOUT IV CONTRAST CLINICAL HISTORY: Seizure. Head injury. COMPARISON STUDY: CT of the brain dated 01/10/2021. TECHNIQUE: Unenhanced axial CT scan of the brain is performed from the vertex to the skull base. A d ose lowering technique was utilized adhering to the principles of ALARA. FINDINGS: Brain parenchyma: The brain parenchyma is normal in appearance. There is no hemorrhage, mass effect, or evidence of acute territorial ischemia by CT criteria. Espino-white matter differentiation is preser sarah. No extra-axial fluid collection is seen. Ventricles, sulci, cisterns: Normal in configuration. Intracranial vasculature: The visualized intracranial vasculature at the skull base is normal in appe arance. Calvarium: There is no depressed calvarial fracture. Soft tissues: There is right frontal soft tissue contusion/laceration. Sinuses and mastoids: There is mild mucosal thickening within the maxillary antra. The remaining visu alized paranasal sinuses are clear. The mastoid air cells are well pneumatized. Orbits: The bony orbits are grossly intact. IMPRESSION: 1. No acute intracranial abnormality. 2. Right frontal scalp injury. ACT 112: Negative or not required by law. Electronically signed by: Jose Turner M.D. 03/07/2021 4:19 PM
--- NOTE | 2021-03-07 16:35 | CT Scan Report ---
CT SCAN OF THE CERVICAL SPINE CLINICAL HISTORY: Seizure. Head injury. COMPARISON STUDY: No priors. TECHNIQUE: CT scan of the cervical spine is performed from the skull base to the upper thoracic spine . Images are reviewed in the axial, sagittal, and coronal planes. IV contrast was not administered fo r this examination. A dose lowering technique was utilized adhering to the principles of ALARA. CT DOSE: 943.64 mGy.cm FINDINGS: Skeletal structures: The skeletal structures are well mineralized. There is no evidence of fracture o r subluxation involving the cervical spine. Vertebral body height and alignment are maintained. There is straightening of the cervical lordosis with mild reversal centered at C4-C5. The odontoid process and lateral masses are intact. The atlantoaxial articulation is preserved. The spinous processes sussy ear intact. Intervertebral discs: The disc spaces are well maintained. Central canal: Widely patent. Soft tissues: The prevertebral and paraspinous soft tissues are within normal limits. Calvarium: The visualized calvarium at the skull base appears intact. Brain parenchyma: Partially visualized brain parenchyma at the skull base is within normal limits. Sinuses and mastoids: There is mild mucosal thickening within the maxillary antra. The mastoid air ce lls are well pneumatized. Lung apices: Clear as visualized. IMPRESSION: There is no evidence of fracture or subluxation involving the cervical spine. ACT 112: Negative or not required by law. Electronically signed by: Jose Turner M.D. 03/07/2021 4:34 PM
[2021-03-07] MEDS ORDERED: LORazepam 2 MG/ML VIAL (IM USE) ONE (17:44)
[2021-03-07] MEDS ORDERED: LORazepam 1 MG/2 ML VIAL IV STA (17:45)
[2021-03-07] MEDS ORDERED: levETIRAcetam 500 MG in 0.9 % SODIUM CHLORIDE 100 ML IV STA (18:09)
[2021-03-07] MEDS ORDERED: LORazepam 4 MG/8 ML VIAL IV PRN (20:08)
--- NOTE | 2021-03-07 20:23 | History & Physical Report ---
Date of Service March 07, 2021 Assessment & Plan (1) Seizure disorder: Plan: Patient found down at home with presumed seizure hitting her head on the sink. Reported seizure like activity in the EMD - lamotrigine increased to 275mg PO BID - Keppra 1500 mg PO BID - given additional 500mg IV x1 - If patient seizure lasts longer than 5 min- Ativan 4mg IV x1 repeat if not effective to max dose of 8mg - EMD did discuss with Neurologist Dr. Chandler- verbally directed that can add Vimpat if another seizure occurs - Patient educated that needs to abstain from ETOH use as this has been a common trigger - Lamotrigine level and Keppra level pending- Patient reports compliance (2) Laceration of head: Plan: CT of the head reveals no intracranial process or fracture - sutured by EMD- clean with soap and water- pat dry - will need follow up to have sutures removed History of Present Illness Chief Complaint: seizure Primary Care Provider: NO PCP 20 YOF with past medical history of: Seizure disorder. Patient has had multiple admissions for seizures, typically following ETOH consumption. She did go out last PM and reports having 2 white claw alcholic beverages, denies any drugs. The patient is no Lamotrigine and Levetiracetam for her seizures. Patient is followed by Nuerology here as well as back home at [facility] with Dr. Price (sp?). The patient comes to the EMD today brought in by her roommates who found the patient on the ground in the bathroom with laceration above her right eye. Reportedly had a seizure and hit her head on the sink when she went down. Patient reportedly had another seizure in the EMD with noted decrease in SPO2, however unable to review the waveforms and event. Patient is currently drowsy, but she also received 1mg IV Ativan in the EMD for this episode. Her lactate was elevated post episode to 2.3 with normal CK. She was also given 500mg IV Keppra dose following directions from Neurologist to the PA- C in [facility]. Patient is unable to recall her events this morning, but she denies that she has ever had an Aura. The patient has had imaging in the past with no focci identified. She has also had spot EEGs here with no video capture of her events. She has since followed up with her Neurologist above at [facility] where she had an extended study done from February 04 to February 06. Neither the patient or her Mother knew what the results officially were for this study. She did note that her Lamotrigine dose was increased 50mg but she was unsure of the dose. Her Lamotrigine dose will be placed at 275 mg PO BID for now and her Keppra will remain at 1500mg PO BID. Will place on seizure precautions, and patient should have person with her when oob at all times for next 24 hours. Will attempt to get her records from [facility]. Patient is unable to remember her password to get into her electronic medical record a this time. Pending on admission is tox screen, test, and UA. Patient has had her COVID vaccine and her COVID test on admission is: NEGATIVE Allergies Allergy/AdvReac Type Severity Reaction Status Date / Time No Known Allergies Allergy Verified 03/07/21 17:32 Home Medications Medication Instructions Recorded Confirmed Type levetiracetam 100 mg/mL oral 1,500 mg PO BID 01/10/21 03/07/21 History solution lamotrigine 100 mg tablet 200 mg PO BID 03/07/21 03/07/21 History lamotrigine 25 mg chewable 50 mg PO BID 03/07/21 03/07/21 History dispersible tablet Past Med/Surg History Medical History Seizure disorder Surgical History History of tonsillectomy Family History Other No significant family history Social History Smoking Status: Never smoker Hx Alcohol Use: Yes Hx Substance Use: No Preferred Language: Spanish Communication Ability: Effective Trust Accounts Supervisor Required: No Beliefs That Will Affect Care: None Current Living Situation: Alone Current Living Situation Comment: [employer] student Feels Safe at Home: Yes Safety Concerns: Feels Safe At This Time Assistive Devices: None Review of Systems Review of Systems: REVIEW OF SYSTEMS: Constitutional: No fever, sweats or chills Eyes: No diplopia, no worsening or blurred vision ENT: normal hearing, no trouble swallowing Respiratory: No cough, sputum, dyspnea at rest or on exertion Cardiovascular: No chest pain, tightness or palpitations Abdomen: No pain, nausea, vomiting, diarrhea or constipation Musculoskeletal: No joint pain, calf pain, swelling Neurologic: No weakness, numbness/tingling, or balance problems Psychiatric: No anxiety or depression Skin: No rash or itch Physical Exam Physical Exam: PHYSICAL EXAM: General: awake, drowsy, appropriate Head: Normocephalic, repaired lacerations to her right eye, no bruising ENT: PERRL, EOMI, no jaw pain, no tongue laceration, no jaw pain Neuro: AAO x 3, speech clear and appropriate, strength intact bilaterally 5/5, sensation intact and equal all extremities and dermatomes, no pronator drift Chest: equal rise and fall of the chest, no accessory muscle use, no heaves or thrills, Clear to auscultation, on room air, Cardiac: Regular rate and rhythm, telemetry reviewed, skin warm dry, cap refill <3 seconds, peripheral pulses +2 no JVD, no murmur, no edema GI: NABS x 4 quadrants, soft, nontender to palpation, no rebound, guarding or tenderness : Spontaneously voiding, no pain, no CVA tenderness MSK: No cervical pain, or thoracic/lumbar ochoa, left knee tenderness with full ROM and no laxity or decreased ROM, no hip pain or pelvis instability Psych: Normal mood and affect Skin: no rash or erythema Results & Data Results & Data ([facility]) Vital Signs (Past 12 Hours) Vital Signs Temp Pulse Pulse Resp BP BP Pulse Ox 03/07/21 19:00 94 H 14 118/79 97 03/07/21 18:30 92 H 16 115/65 97 03/07/21 18:00 105 H 15 125/67 99 03/07/21 17:30 76 16 107/78 100 03/07/21 17:00 84 17 105/70 100 03/07/21 16:45 81 18 103/61 98 03/07/21 16:30 76 20 103/61 97 03/07/21 16:20 71 12 96 03/07/21 14:59 36.7 C 96 H 16 109/69 97 Laboratory Results Abnormal lab results 03/07/21 03/07/21 03/07/21 Range/Units 15:14 15:14 19:05 [place] # (Auto) 0.67 H (0.11-0.59) K/uL Chloride 109 H (98-107) mmol/L Lactate 2.3 H* (0.4-2.0) mmol/L AST 9 L (15-37) U/L Diagnostic Findings Cervical Spine CT 03/07/21 15:31 CT SCAN OF THE CERVICAL SPINE CLINICAL HISTORY: Seizure. Head injury. COMPARISON STUDY: No priors. TECHNIQUE: CT scan of the cervical spine is performed from the skull base to the upper thoracic spine. Images are reviewed in the axial, sagittal, and coronal planes. IV contrast was not administered for this examination. A dose lowering technique was utilized adhering to the principles of ALARA. CT DOSE: 943.64 mGy.cm FINDINGS: Skeletal structures: The skeletal structures are well mineralized. There is no evidence of fracture or subluxation involving the cervical spine. Vertebral body height and alignment are maintained. There is straightening of the cervical lordosis with mild reversal centered at C4-C5. The odontoid process and lateral masses are intact. The atlantoaxial articulation is preserved. The spinous processes appear intact. Intervertebral discs: The disc spaces are well maintained. Central canal: Widely patent. Soft tissues: The prevertebral and paraspinous soft tissues are within normal l imits. Calvarium: The visualized calvarium at the skull base appears intact. Brain parenchyma: Partially visualized brain parenchyma at the skull base is within normal limits. Sinuses and mastoids: There is mild mucosal thickening within the maxillary antra. The mastoid air cells are well pneumatized. Lung apices: Clear as visualized. IMPRESSION: There is no evidence of fracture or subluxation involving the cervical spine. ACT 112: Negative or not required by law. Electronically signed by: Jose Turner M.D. 03/07/2021 4:[address] 03/07/21 15:31 CT SCAN OF THE BRAIN WITHOUT IV CONTRAST CLINICAL HISTORY: Seizure. Head injury. COMPARISON STUDY: CT of the brain dated 01/10/2021. TECHNIQUE: Unenhanced axial CT scan of the brain is performed from the vertex to the skull base. A dose lowering technique was utilized adhering to the principles of ALARA. FINDINGS: Brain parenchyma: The brain parenchyma is normal in appearance. There is no hemorrhage, mass effect, or evidence of acute territorial ischemia by CT criteria. Espino-white matter differentiation is preserved. No extra-axial fluid collection is seen. Ventricles, sulci, cisterns: Normal in configuration. Intracranial vasculature: The visualized intracranial vasculature at the skull base is normal in appearance. Calvarium: There is no depressed calvarial fracture. Soft tissues: There is right frontal soft tissue contusion/laceration. Sinuses and mastoids: There is mild mucosal thickening within the maxillary antra. The remaining visualized paranasal sinuses are clear. The mastoid air cells are well pneumatized. Orbits: The bony orbits are grossly intact. IMPRESSION: 1. No acute intracranial abnormality. 2. Right frontal scalp injury. ACT 112: Negative or not required by law. Electronically signed by: Jose Turner M.D. 03/07/2021 4:19 PM Medications Administered Discontinued Medications Sodium Chloride (Nss 1000ml) 1,000 mls @ 999 mls/hr IV .Q1H1M ONE Stop: 03/07/21 16:46 Last Infusion: 03/07/21 17:56 Dose: 0 mls/hr Documented by: [id number] Admin: 03/07/21 16:42 Dose: 999 mls/hr Documented by: [id number] Lorazepam (Ativan) 1 mg in 2 mls @ 2 mls/min IV NOW STA Stop: 03/07/21 17:46 Last Admin: 03/07/21 17:56 Dose: Not Given Documented by: [id number] Levetiracetam 500 mg/ Sodium (Chloride) 105 mls @ 440 mls/hr IV NOW STA Stop: 03/07/21 18:23 Last Infusion: 03/07/21 19:10 Dose: 0 mls/hr Documented by: [id number] Admin: 03/07/21 18:36 Dose: 440 mls/hr Documented by: [id number] Lidocaine (Lidocaine/Epineph/Tetracaine 1 Ea Syr) 1 ea EXT NOW STA Stop: 03/07/21 15:47 Last Admin: 03/07/21 16:42 Dose: 1 ea Documented by: [id number] Lorazepam (Lorazepam 2 Mg/Ml Vial (Im Use)) Confirm Administered Dose 2 mg .ROUTE .STK-MED ONE Stop: 03/07/21 17:45 Last Admin: 03/07/21 17:56 Dose: 1 mg Documented by: [id number] ECG Additional Comments: Normal sinus rhythm Low voltage QRS Septal infarct , age undetermined Abnormal ECG When compared with ECG of 10-JAN-2021 19:45, No significant change was found Code Status & VTE Plan Code Status CODE: FULL VTE: SCDS, ambulation Supervising Physician Co-Signing Physician Notes During face to face encounter, a history and physical examination was obtained. I discussed plan of care with patient and VALENTINE Dominguez. All of patient's questions were answered. Reviewed above note and agree with it. Patient will be admitted for seizures and will continue anti-epileptic medications. PG Care Time/CCT Total # of Minutes Spent Total Time Spent with Patient: Total time spent is greater than 50% in coordination of care (as documented) at patient's floor/unit and/or counseling patient: Coding Level of Care Code 56180 Initial Inpt Care Lvl 3 Diagnoses Seizure disorder G40.909 Laceration of head S01.91XA
[2021-03-08] MEDS: lamoTRIgine 25 MG TAB PO SCH ×2 (02:17→08:52)
[2021-03-08] MEDS: lamoTRIgine 100 MG TAB PO SCH ×2 (02:18→08:52)
[2021-03-08] MEDS: levETIRAcetam ORAL SOLN 100MG/ML PO SCH ×2 (02:18→08:52)
[2021-03-08] MEDS ORDERED: FLUARIX QUADRIVALENT 0.5 ML SYR IM ONE (03:32)
[2021-03-08 07:47] LABS: Basophils # (auto) 0.02 K/uL (0-0.2); Basophils % (auto) 0.3 %; Eosinophils # (auto) 0.05 K/uL (0-0.5); Eosinophils % (auto) 0.7 %; Hematocrit (blood only) 33.9 % (37-47); Hemoglobin 11.3 g/dL (12.0-16.0); Immature Granulocytes # (auto) 0.01 K/uL (0.00-0.02); Immature Granulocytes % (auto) 0.1 %; Lymphocytes # (auto) 1.84 K/uL (1.2-3.4); Lymphocytes % (auto) 26.9 %; Mean Corpuscular Hemoglobin 31.2 pg (25-34); Mean Corpuscular Hgb Conc 33.3 g/dL (32-36); Mean Corpuscular Volume 93.6 fL (80-100); Mean Platelet Volume 9.7 fL (7.4-10.4); Monocytes # (auto) 0.86 K/uL (0.11-0.59); Monocytes % (auto) 12.6 %; Neutrophils # (auto) 4.07 K/uL (1.4-6.5); Neutrophils % (auto) 59.4 %; Platelet Count 199 K/uL (130-400); RDW Coefficient of Variation 12.6 % (11.5-14.5); RDW Standard Deviation 43.3 fL (36.4-46.3); Red Blood Count 3.62 M/uL (4.2-5.4); White Blood Count 6.85 K/uL (4.8-10.8)
[2021-03-08 08:10] LABS: BUN Creatinine Ratio 10.4 (10-20); Calcium 8.4 mg/dl (8.5-10.1); Creatinine Clr Calc Pharmacy 128.2 ml/min; Est GFR (African American) 147.1 ml/min; Est GFR (Non-African American) 126.9 ml/min; Magnesium 2.1 mg/dl (1.8-2.4); Potassium 3.8 mmol/L (3.5-5.1)
--- NOTE | 2021-03-08 12:16 | Electrocardiogram Report ---
Test Reason : Blood Pressure : / mmHG Vent. Rate : 083 BPM Atrial Rate : 083 BPM P-R Int : 194 ms QRS Dur : 072 ms QT Int : 380 ms P-R-T Axes : 056 083 054 degrees QTc Int : 446 ms Normal sinus rhythm Low voltage QRS Septal infarct , age undetermined Abnormal ECG When compared with ECG of 10-JAN-2021 19:45, No significant change was found Confirmed by Víctor Mohan ([id number]) on 03/08/2021 12:15:39 PM Referred By: Confirmed By:Víctor Mohan
--- NOTE | 2021-03-08 13:42 | Discharge Summary ---
Date of Service March 08, 2021 Admission HPI Per Admitting Provider 20 YOF with past medical history of: Seizure disorder. Patient has had multiple admissions for seizures, typically following ETOH consumption. She did go out last PM and reports having 2 white claw alcholic beverages, denies any drugs. The patient is no Lamotrigine and Levetiracetam for her seizures. Patient is followed by Nuerology here as well as back home at [facility] with Dr. Price (sp?). The patient comes to the EMD today brought in by her roommates who found the patient on the ground in the bathroom with laceration above her right eye. Reportedly had a seizure and hit her head on the sink when she went down. Patient reportedly had another seizure in the EMD with noted decrease in SPO2, however unable to review the waveforms and event. Patient is currently drowsy, but she also received 1mg IV Ativan in the EMD for this episode. Her lactate was elevated post episode to 2.3 with normal CK. She was also given 500mg IV Keppra dose following directions from Neurologist to the PA- C in [facility]. Patient is unable to recall her events this morning, but she denies that she has ever had an Aura. The patient has had imaging in the past with no focci identified. She has also had spot EEGs here with no video capture of her events. She has since followed up with her Neurologist above at [facility] where she had an extended study done from February 04 to February 06. Neither the patient or her Mother knew what the results officially were for this study. She did note that her Lamotrigine dose was increased 50mg but she was unsure of the dose. Her Lamotrigine dose will be placed at 275 mg PO BID for now and her Keppra will remain at 1500mg PO BID. Will place on seizure precautions, and patient should have person with her when oob at all times for next 24 hours. Will attempt to get her records from [facility]. Patient is unable to remember her password to get into her electronic medical record a this time. Pending on admission is tox screen, test, and UA. Patient has had her COVID vaccine and her COVID test on admission is: NEGATIVE Admission Exam Per Admitting Provider PHYSICAL EXAM: General: awake, drowsy, appropriate Head: Normocephalic, repaired lacerations to her right eye, no bruising ENT: PERRL, EOMI, no jaw pain, no tongue laceration, no jaw pain Neuro: AAO x 3, speech clear and appropriate, strength intact bilaterally 5/5, sensation intact and equal all extremities and dermatomes, no pronator drift Chest: equal rise and fall of the chest, no accessory muscle use, no heaves or thrills, Clear to auscultation, on room air, Cardiac: Regular rate and rhythm, telemetry reviewed, skin warm dry, cap refill <3 seconds, peripheral pulses +2 no JVD, no murmur, no edema GI: NABS x 4 quadrants, soft, nontender to palpation, no rebound, guarding or tenderness : Spontaneously voiding, no pain, no CVA tenderness MSK: No cervical pain, or thoracic/lumbar ochoa, left knee tenderness with full ROM and no laxity or decreased ROM, no hip pain or pelvis instability Psych: Normal mood and affect Skin: no rash or erythema Principal Diagnosis provoked seizure Discharge Exam General: A&Ox3. NAD. Cooperative. HEENT: Normocephalic. Vertical laceration of superior right eye repaired with 7 simple interrupted 6-0 nylon sutures. Pulm: CTAB A&P. -wheezes, -rales, -rhonchi. Symmetrical chest rise. No increase work of breathing. No respiratory distress. Cardiac: RRR, -mrg. Radial pulses intact and symmetrical. Abdominal: Nontender, nondistended, soft. BS present. CRANIAL NERVES: II: Pupils equal and reactive, no relative afferent pupillary defect, no VF cuts III, IV, : EOM intact, no gaze preference or deviation, no nystagmus. V: normal sensation in V1, V2, and V3 segments bilaterally VII: no asymmetry, no nasolabial fold flattening VIII: normal hearing to speech IX, X: normal palatal elevation, no uvular deviation XI: 5/5 head turn and 5/5 shoulder shrug bilaterally XII: midline tongue protrusion MOTOR: RUE: 5/5 Shoulder internal rotation, external rotation, flexion, extension, abduction, adduction 5/5 Elbow flexion/extension, wrist flexion/extension 5/5 summer analyst strength, finger flexion/extension, interosseus LUE: 5/5 Shoulder internal rotation, external rotation, flexion, extension, abduction, adduction 5/5 Elbow flexion/extension, wrist flexion/extension 5/5 summer analyst strength, finger flexion/extension, interosseus RLE: 5/5 to hip flexion/extension, knee flexion/extension, ankle dorsiflexion/plantarflexion LLE: 5/5 to hip flexion/extension, knee flexion/extension, ankle dorsiflexion/plantarflexion REFLEXES: 2/4 patellar, bicepts, and achilles DTR without asymmetry. no clonus SENSORY: Normal to touch, temp in upper and lower extremities without deficit or asymmetry Discharge Data Allergies Allergy/AdvReac Type Severity Reaction Status Date / Time No Known Allergies Allergy Verified 03/07/21 17:32 Consultations 03/07/21 18:58 ED Decision to Admit Stat 03/08/21 00:03 Consult Health Information Management Routine Ordered Studies 03/07/21 15:31 CT cervical spine wo con Stat CT head/brain wo con Stat Hospital Course (1) Seizure disorder: Jeannie is a 20-year-old female with a past medical history of generalized recurrent seizures commonly provoked by alcohol who presented with a seizure episode following ingestion of alcohol. To do as outpatient: 1. Follow-up with outpatient neurologist, PCP follow-up 2. Follow-up on lamotrigine and Keppra levels which were pending at time of discharge. Note lamotrigine was increased to 275 mg twice daily during admission and this dose was continued on discharge. 3. Removal of facial sutures in approximately 5-7 days 4. Consider addition of Vimpat if third seizure episode occurs Generalized seizure Patient found down at home with presumed seizure hitting her head on the sink. Reported seizure like activity in the EMD CThead: No acute findings/fracture/bleed Lactate normal No gross electrolyte abnormalities - lamotrigine increased to 275mg PO BID - Keppra 1500 mg PO BID - given additional 500mg IV x1 - EMD did discuss with Neurologist Dr. Chandler- verbally directed that can add Vimpat if another seizure occurs - Patient educated that needs to abstain from ETOH use as this has been a common trigger - Lamotrigine level and Keppra level pending- Patient reports compliance. 03/08: Patient remained clinically well and felt that she was completely at her normal baseline for 24 hours prior to discharge. Discussed remaining in the hospital for further observation versus discharge to outpatient follow-up, patient felt that her seizure was likely provoked by alcohol as they had been in the past. She reports compliance with her medications, and expressed an u nderstanding that given that she had remained normal for over 24 hours discharge was reasonable with close follow-up. She was instructed to not drive, and to have follow-up with both her outpatient neurologist and with the [facility] clinic within 1 week. (2) Laceration of head: - CT of the head reveals no intracranial process or fracture - sutured by EMD- clean with soap and water- pat dry - will need follow up to have sutures removed in 5 to 7 days Total Time Total Time Spent Total Time Spent (In Minutes): Total time spent day of discharge including direct patient care, documentation, review of labs and images, and coordination of care 40 minutes Discharge Plan Discharge Items Patient Disposition: Home - Self-Care Reason For Visit: SEIZURE Discharge Diagnosis: Recurrent seizure Condition on Discharge: Good Activity: Per Instructions section Non-emergency contact: Primary Care Provider and Neurologist Call non-emergency contact if: you have any medication questions, your symptoms worsen and your pain is not controlled Follow-up/Referrals: Ruddy Mcdonald DO [Resident] - PCP,NO [Primary Care Provider] - Diet: Regular Addtl Attending Provider Instructions: You were seen in the hospital after a seizure episode in the setting of alcohol use. You have had multiple seizures in the past. Alcohol been a common trigger of your seizures in the past, please avoid all alcohol at this time. You had lamotrigine and Keppra levels pending at time of discharge. Your outpatient seizure medications may need to be adjusted based on these levels. Your case was discussed with neurology, if another seizure occurs may consider addition of Vimpat to your antiseizure regimen. You were observed over 24 hours and did not have any recurrent seizure. Please make a follow-up appointment with your outpatient neurologist for follow-up on your seizure episode. Your lamotrigine dose was changed to 275 mg by mouth twice daily at the recommendation of neurology. This may need to be further adjusted based on your drug levels which were pending at time of discharge. Please discuss these drug levels and potential medication adjustment at your follow-up appointment below. You sustained a laceration to the face due to your seizure which was closed with sutures in the emergency department. The sutures should be removed in 5-7 days, please have your wound dressed and sutures removed by Dr. Mcdonald at the follow-up appointment below. A follow-up appointment is being made for you with the [facility] with Dr. Mcdonald. You should be seen within 5-7 days. If you do not hear confirmation of this appointment, or need to change this appointment, please call his office at [phone]. [address] at this time. Do not drive until your neurologist recommends it is safe for you to do so. If you develop any new or worsening symptoms including fever, chills, sweats, chest pain, chest pressure, difficulty breathing, uncontrolled nausea/vomiting, rash, wheezing, passing out or nearly passing out, bleeding, black/bloody bowel movements, or other new or concerning symptoms please call your primary care physician, or call 911 for re-evaluation in the emergency department if you are very concerned. Pending Studies at Discharge: Yes (Lamictal, Keppra levels) Stand-Alone Forms: [facility] [employer], Smoking Cessation Medications and DC Order Prescriptions: Continued levetiracetam 100 mg/mL solution 1,500 mg PO BID RF: 0 lamotrigine 100 mg tablet 200 mg PO BID RF: 0 Changed lamotrigine 25 mg tablet, chewable dispersible 75 mg PO BID 30 Days Qty: 0 RF: 0 Discharge Orders: Discharge Order (Routine); Ordered 03/08/21 Ordered By: Chauncey Wolfe Admission Data Admit Date/Time: 03/07/21 20:11 Attending Provider: Chauncey Wolfe Admit Provider: Og Hartman Primary Care Provider: PCP,NO Other Providers: Og Hartman Coding Level of Care Code D/C DAY MANAGEMENT >30 MINS Diagnoses Seizure disorder G40.909 Laceration of head S01.91XA
[2021-03-12 08:26] LABS: Lamictal(Lamotrigine) 2.4 mcg/mL (4.0-18.0); Levetiracetam Keppra > 80.0 mcg/mL (12.0-46.0)
== END 2021-03-08 16:09 | disposition home or self-care (01) ==
LOC: ED 14:49 → SUATTDRO 20:11 → INTOOBSV 20:11 → EDINP 20:11